=== PATIENT | female | born 1980 | race Hispanic/Latino ===

== ENCOUNTER → 2017-09-06 09:24 | Outpatient (CLI) | payer MEDICAID, SELFPAY ==
[2017-09-06 11:02] LABS: Free T3 2.9 pg/mL (2.18-3.98); T4 Free Direct 0.91 ng/dL (0.76-1.46); Thyroid Stim Hormone (TSH) 9.83 uIU/mL (0.358-3.74)
== END ==
PROVIDERS: Visit Provider Nurse Practitioner
DX: E03.9 Hypothyroidism, unspecified (principal)
CPT/HCPCS: 36415; 84439; 84443; 84481

== ENCOUNTER → 2018-01-30 13:27 | Outpatient (CLI) | payer MEDICAID, SELFPAY ==
[2018-01-30 15:43] LABS: Hemoglobin A1c 10.8 % (4.2-6.3)
[2018-01-30 16:51] LABS: Free T3 1.4 pg/mL (2.18-3.98); T4 Free Direct 0.57 ng/dL (0.76-1.46)
== END ==
PROVIDERS: Visit Provider Nurse Practitioner
DX: E03.9 Hypothyroidism, unspecified (principal); R73.09 Other abnormal glucose
CPT/HCPCS: 36415; 83036; 84439; 84443; 84481

== ENCOUNTER 2018-02-14 10:37 | Emergency (ER) | payer MEDICAID, SELFPAY ==
[2018-02-14 10:38] VITALS: BP 131/82; PULSE 91; RESP 16; TEMP 37.1; O2SAT 99; BMI 36.1
--- NOTE | 2018-02-14 11:00 | US_ITS ---
STUDY: ABDOMINAL ULTRASOUND - RIGHT UPPER QUADRANT REASON FOR VISIT: Female, 37 years old. Right upper quadrant pain. TECHNIQUE: Ultrasound evaluation of the right upper quadrant was performed with real-time and static warner-scale imaging. TECHNICAL QUALITY: Adequate. COMPARISON: None. FINDINGS: Liver: The liver is slightly enlarged and measures 18.9 cm. There is increased echogenicity consistent with fatty infiltration. The bile ducts are within normal limits. There is hepatic color flow. The direction of portal flow is hepatopetal. There is no demonstrated mass lesion. Gallbladder: Normal distended gallbladder. The gallbladder wall measures 2.5 mm. There is a negative sonographic Page's sign. There is no pericholecystic fluid. There are no gallstones. Common Bile Duct (C.B.D.): The common bile duct measures 3.4 mm. Pancreas: Normal size of the head, body and tail of the pancreas. There is normal echogenicity of the pancreas. There is no demonstrated pancreatic mass or cyst. Right Kidney: Normal size of the right kidney. The right kidney measures 10.4 cm x 4.5 cm x 4.3 cm. Normal renal cortex. The right cortex measures 1.1 cm. There is no demonstrated renal mass or cyst. There is no right hydronephrosis. US/Gallbladder IMPRESSION: Mild hepatomegaly and fatty infiltration of the liver. Electronically Signed: Jim Askew MD at 12:20 EDT Tel [phone], Service support ,
[2018-02-14] MEDS: Ondansetron 4 MG/2 ML Vial IV (11:13)
[2018-02-14] MEDS: Ketorolac 30 MG/ML Syringe IV (11:13)
[2018-02-14 11:23] LABS: Absolute Lymphocyte Count 2.52 X10^3/ul (0.83-4.51); Absolute Neutrophil Count 8.4 X10^3/uL (2.0-7.7); Basophil# 0.05 X10^3/uL; Basophil% 0.4 % (0-1); Eosinophil# 0.16 X10^3/uL; Eosinophils% 1.4 % (0-5); Hematocrit 45.2 % (37-47); Hemoglobin 15.4 g/dl (12.0-15.0); Lymphocyte # 2.52 X10^3/ul (4.0); Lymphocyte % 21.8 % (19-41); Mean Corp Hgb Conc 34.1 g/gl (32-36); Mean Platelet Vol. 10.7 fl (6.2-12.0); Monocyte% 3.5 % (0-10); Neutrophil % 72.7 % (47-70); POSITIVE COUNT NO; POSITIVE DIFFERENTIAL NO; POSITIVE MORPHOLOGY NO; Platelet Count 205 K/mm3 (150-450); RBC Distribution Width CV 13.5 % (11.6-14.6); RBC Distribution Width SD 46.6 fl (35.1-43.9); Red Blood Count 4.81 M/mm3 (4.2-5.4); White Blood Count 11.6 K/mm3 (4.4-11.0)
[2018-02-14 11:39] LABS: AST(SGOT) 273 U/L (15-37); Alanine Aminotransfer ALT/SGPT 209 U/L (13-56); Albumin, Serum 4.4 g/dL (3.2-5.0); Alkaline Phosphatase 362 U/L (45-117); Anion Gap 10 (5-15); BUN 12 mg/dL (7-18); BUN/Creat Ratio 13.9 RATIO (10-20); Bilirubin, Direct 0.22 mg/dL (0.00-0.30); Calcium,Total 9.5 mg/dL (8.5-10.1); Chloride 96 mmol/L (98-107); Creatinine, Serum 0.86 mg/dL (0.55-1.02); EST Glomerular Filtration Rate 79 mL/min (>60); Est Glom Filt Rate - Afr Amer 95 mL/min (>60); Estimated Creatinine Clearance 68.24 ml/min; Globulin 5.2 g/dL (2.2-4.2); Glucose 308 mg/dL (74-106); Lipase 204 U/L (73-393); Potassium 3.9 mmol/L (3.5-5.1); Protein, Total 9.6 g/dL (6.4-8.2); Sodium Level 135 mmol/L (136-145)
[2018-02-14 13:55] VITALS: BP 120/75; PULSE 77; RESP 14; O2SAT 98
--- NOTE | 2018-02-14 15:11 | HP.PCM_ITS ---
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 Smoking Status: Never smoker - Physical Exam Vital Signs Temp Pulse Resp BP Pulse Ox 98.7 F 77 14 120/75 98 02/14/18 10:38 02/14/18 13:55 02/14/18 13:55 02/14/18 13:55 02/14/18 13:55 Oxygen Delivery Method Room Air Weight: 86.818 kg Body Mass Index (BMI) 36.1 Laboratory Tests Past 24 Hrs 02/14/18 02/14/18 11:15 11:15 WBC 11.6 H RBC 4.81 Hgb 15.4 H Hct 45.2 MCV 94.0 MCH 32.0 MCHC 34.1 RDW 13.5 RDW Differential 46.6 H Plt Count 205 MPV 10.7 Immature Gran % (Auto) 0.200 Neut % (Auto) 72.7 H Lymph % (Auto) 21.8 [place] % (Auto) 3.5 Eos % (Auto) 1.4 Baso % (Auto) 0.4 Absolute Neuts (auto) 8.4 H Absolute Lymphs (auto) 2.52 Total Counted Not Reportable Sodium 135 L Potassium 3.9 Chloride 96 L Carbon Dioxide 29.0 Anion Gap 10 BUN 12 Creatinine 0.86 Estim Creat Clear Calc 68.24 Est GFR (MDRD) Af Amer 95 Est GFR (MDRD) Non-Af 79 BUN/Creatinine Ratio 13.9 Glucose 308 H Calcium 9.5 Total Bilirubin 0.70 Direct Bilirubin 0.22 AST 273 H ALT 209 H Alkaline Phosphatase 362 H Total Protein 9.6 H Albumin 4.4 Globulin 5.2 H Lipase 204 Assessment/Plan All Active Problems (Last Reviewed 10/09/17 @ 10:58 by Mahnaz Raphael) Hypothyroidism (acquired) (Acute) Ureteral calculus, right (Acute)
[2018-02-14 15:25] VITALS: BMI 36.2
[2018-02-14 15:30] VITALS: BP 124/84; PULSE 85; RESP 16; O2SAT 96
--- NOTE | 2018-02-14 15:36 | ED.VISSUMM ---
- ER Visit Summary Date of Service: 02/14/18 Chief Complaint: Right upper quadrant abdominal pain History of Present Illness: The patient is a 37 F past medical history kidney stone and hyperthyroidism. Only prior abdominal surgeries for . Patient states the last week she has had right upper quadrant abdominal pain worse with spicy foods. Associated nausea vomiting. Denies diarrhea. Denies melena. Denies dysuria. Denies fever. No history of gallstones. Last menstrual period January 27. Denies any trauma. 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 Physical Examination: Young female no acute distress. Vital signs are stable afebrile. H EENT exam unremarkable. Neck nontender. Lungs clear to auscultation bilaterally. Heart regular rate and rhythm no murmur. Abdomen is soft soft. Nondistended normal bowel sounds. Mild right upper quadrant tenderness. No specific Page sign. Right lower quadrant and left-sided abdomen are unremarkable. Nondistended. No organomegaly or masses. She is moving all 4 extremities are neurovascular intact. Back exam nontender. I do not see any signs of jaundice or scleral icterus. Neurologically she is awake alert without focal deficits. Test Results: White count slightly elevated 11.6. H&H 15 and 45 no bands. Electrolytes are unremarkable with a BUN 12 and creatinine 0.8. Her liver enzymes are elevated the alk phos is 362, ALT 209, AST 273. Lipase is normal. The direct and indirect bilirubin normal. Right upper quadrant ultrasound showed mild hepatomegaly and fatty liver. There is no gallstones, no acute cholecystitis nor any signs of biliary obstruction. This may be secondary to inflammation or infection I did send I hepatitis panel. Emergency Department Course and Treatment: Repeat exam patient is doing well at 1535. Abdomen is benign. I spoke to her hospitalist they felt comfortable as do I with her being worked up as an outpatient. She will be referred to Dr. Pena. Treatment Plan: Outpatient workup for abdominal pain and elevated liver enzymes Disposition: Discharge Impression: Acute right upper quadrant abdominal pain with elevated liver enzymes Rule out hepatitis versus other etiologies This note was generated with Presentain dictation software. It may contain incorrect words, spelling, and punctuation that were not noted in review of the chart prior to signing ED Disposition - Plan for ED Patient: Chief Complaint: Abd Pain Referrals: Care Physician,No Primary [Primary Care Provider] -
--- NOTE | 2018-02-14 15:40 | ED.DEP ---
ED Disposition - Plan for ED Patient: Disposition: Home or Assisted Living Chief Complaint: Abd Pain Instructions: ED Abdominal Pain Unkn Cause Referrals: Jake Pena MD [NON-STAFF] - As soon as possible Additional Instructions: Call and follow-up with the physician as soon as possible. You are going to need further evaluation for abnormal liver enzymes and right upper quadrant abdominal pain. This may or may not be secondary to hepatitis versus other causes. I did send additional lab work that is not back yet today for this. Return if feeling worse, intractable vomiting or fever.
--- NOTE | 2018-02-14 15:41 | ED.DCSUM_ITS ---
- ER Visit Summary Date of Service: 02/14/18 Chief Complaint: Right upper quadrant abdominal pain History of Present Illness: The patient is a 37 F past medical history kidney stone and hyperthyroidism. Only prior abdominal surgeries for . Patient states the last week she has had right upper quadrant abdominal pain worse with spicy foods. Associated nausea vomiting. Denies diarrhea. Denies melena. Denies dysuria. Denies fever. No history of gallstones. Last menstrual period January 27. Denies any trauma. 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 Physical Examination: Young female no acute distress. Vital signs are stable afebrile. H EENT exam unremarkable. Neck nontender. Lungs clear to auscultation bilaterally. Heart regular rate and rhythm no murmur. Abdomen is soft soft. Nondistended normal bowel sounds. Mild right upper quadrant tenderness. No specific Page sign. Right lower quadrant and left-sided abdomen are unremarkable. Nondistended. No organomegaly or masses. She is moving all 4 extremities are neurovascular intact. Back exam nontender. I do not see any signs of jaundice or scleral icterus. Neurologically she is awake alert without focal deficits. Test Results: White count slightly elevated 11.6. H&H 15 and 45 no bands. Electrolytes are unremarkable with a BUN 12 and creatinine 0.8. Her liver enzymes are elevated the alk phos is 362, ALT 209, AST 273. Lipase is normal. The direct and indirect bilirubin normal. Right upper quadrant ultrasound showed mild hepatomegaly and fatty liver. There is no gallstones, no acute cholecystitis nor any signs of biliary obstruction. This may be secondary to inflammation or infection I did send I hepatitis panel. Emergency Department Course and Treatment: Repeat exam patient is doing well at 1535. Abdomen is benign. I spoke to her hospitalist they felt comfortable as do I with her being worked up as an outpatient. She will be referred to Dr. Pena. Treatment Plan: Outpatient workup for abdominal pain and elevated liver enzymes Disposition: Discharge Impression: Acute right upper quadrant abdominal pain with elevated liver enzymes Rule out hepatitis versus other etiologies This note was generated with [employer] dictation software. It may contain incorrect words, spelling, and punctuation that were not noted in review of the chart prior to signing ED Disposition - Plan for ED Patient: Chief Complaint: Abd Pain Referrals: Care Physician,No Primary [Primary Care Provider] -
[2018-02-14 16:03] VITALS: RESP 16
[2018-02-16 12:13] LABS: HEPATITIS B SURFACE AG Negative (Negative); Hepatitis A IgM Antibody Negative (Negative); Hepatitis B Core AB IgM Negative (Negative)
[2018-02-16 15:11] LABS: Hep C Antibodies <0.1 s/co ratio (0.0-0.9)
== END 2018-02-14 16:05 | disposition home or self-care (01) ==
PROVIDERS: Emergency Provider Emergency Medicine
DX: R10.11 Right upper quadrant pain (principal); R74.8 Abnormal levels of other serum enzymes; K76.0 Fatty (change of) liver, not elsewhere classified; Z87.442 Personal history of urinary calculi
CPT/HCPCS: 76705; 80048; 80074; 80076; 83690; 85025; 96374; 96375; 99283; A4216; J2405

== ENCOUNTER → 2018-04-10 10:38 | Outpatient (CLI) | payer SELFPAY ==
[2018-04-10 12:59] LABS: Free T3 2.9 pg/mL (2.18-3.98); T4 Free Direct 1.17 ng/dL (0.76-1.46); Thyroid Stim Hormone (TSH) 6.01 uIU/mL (0.358-3.74)
== END ==
PROVIDERS: Visit Provider Nurse Practitioner
DX: E03.9 Hypothyroidism, unspecified (principal)
CPT/HCPCS: 36415; 84439; 84443; 84481

== ENCOUNTER 2018-12-31 17:20 | Inpatient (IN) | payer MEDICAID, SELFPAY ==
[2018-12-31] VITALS (11 sets, daily range): BP systolic 112–132; BP diastolic 61–85; PULSE 100–116; RESP 16–20; TEMP 36–36.3; O2SAT 95–100; BMI 38.0
[2018-12-31] MEDS: Lactated Ringers 1,000 ML 999 ML IV ×2 (13:00→17:45)
[2018-12-31] MEDS: Betamethasone/Betamethasone 30 MG/5 ML Vial 12 MG IM (13:55)
[2018-12-31] MEDS: 0.9% Saline Lock 10 ML Syringe IV (14:00)
--- NOTE | 2018-12-31 14:30 | US_ITS ---
STUDY: OBSTETRICAL ULTRASOUND - BIOPHYSICAL PROFILE REASON FOR EXAM: Female, 38 years old. well-being. Diabetes. LMP: 04/18/2019 PRIOR ULTRASOUND: None. TECHNIQUE: Transabdominal TECHNICAL QUALITY: Adequate. FINDINGS: There is a single intrauterine fetus. The fetus is in a cephalic presentation. There is demonstrated cardiac activity with a heart rate of 147 bpm. There is decreased amniotic fluid consistent with oligohydramnios. The largest amniotic fluid pocket measures 2.4 cm. The amniotic fluid index (MANISH) is 6.6 cm. The placenta is anterior in location and is not low lying. There are Grade 3 placental changes. Age by LMP: 36 weeks, 5 days. BOBBY by LMP: 01/23/19. Gender: Male BIOPHYSICAL PROFILE: Breathing Movements (FBM): 0 Gross Body Movements (GBM): 0 Tone (FT): 0 Amniotic Fluid Volume (AFV): 2 TOTAL SCORE: 2 / 8 US/Biophysical Prof W/O Non Stres IMPRESSION: Abnormal biophysical profile of 2/8. Electronically Signed: Tavo Day MD at 17:18 EDT , Service support ,
[2018-12-31 15:19] LABS: Hemoglobin 12.4 g/dl (12.0-15.0); Mean Corp Hgb Conc 33.5 g/gl (32-36); Mean Corpuscular Volume 80.6 fL (81-99); Mean Platelet Vol. 12.1 fl (6.2-12.0); Platelet Count 252 K/mm3 (150-450); RBC Distribution Width SD 36.7 fl (35.1-43.9); Red Blood Count 4.59 M/mm3 (4.2-5.4); Scan Indicated on CBC? Y/N NO; White Blood Count 9.6 K/mm3 (4.4-11.0)
[2018-12-31 15:31] LABS: Fibrinogen 670 mg/dl (203-444); Partial Thromboplast Time 28.7 Seconds (24.1-36.2); Prothrombin Time (Protime)PT. 12.9 SECONDS (11.7-14.9)
[2018-12-31 15:33] LABS: Protein, Urine (Random) 17.8 mg/dL (<11.9); Protein:Creat Ratio 286 mg/g CRE (0-200)
[2018-12-31 16:05] LABS: AST(SGOT) 27 U/L (15-37); Alanine Aminotransfer ALT/SGPT 16 U/L (13-56); Creatinine, Serum 0.57 mg/dL (0.55-1.02); EST Glomerular Filtration Rate 126 mL/min (>60); Est Glom Filt Rate - Afr Amer 152 mL/min (>60); Estimated Creatinine Clearance 101.97 ml/min; Uric Acid 5.3 mg/dL (2.6-6.0)
[2018-12-31 17:06] LABS: Bedside Glucose 157 mg/dL (70-110)
--- NOTE | 2018-12-31 17:28 | PCM.HP.OB ---
History Date of Admission: 02/28/17 Final BOBBY: 02/01/19 Final BOBBY Source: US <20 weeks Gestational age: 35 Weeks and 3 Days History of this : This is a 38 year-old, -2-0-2 at 35-3/7 weeks gestation with EDC of 02/01/2019 by first trimester ultrasound alone presents from the office for decelerations and nonreactive nonstress test. In addition she was having some contractions and was admitted for threatened labor. Labor and delivery she was found to have occasional variable and late decelerations. One variable deceleration was 2 minutes long. Patient had good movement. She continues to have regular contractions. She denies any gross vaginal bleeding or leaking of fluid. Medical History: Medical History (Last Reviewed 06/05/18 @ 11:22 by Mahnaz Raphael) Carpal tunnel syndrome G56.00 Hypothyroidism E03.9 Surgical History: Surgical History (Last Reviewed 06/05/18 @ 11:22 by Mahnaz Raphael) H/O: Z98.891 Allergies amoxicillin Allergy (Verified 12/31/18 13:00) Rash Home Medications: Home Medications vitamins no.106-iron 27.5 mg-folate no.6 1 mg-dha capsule 1 cap PO DAILY 06/05/18 levothyroxine 50 mcg tablet See Rx Instructions PO QDAY #74 tab 06/08/18 Smoking Status: Never smoker Alcohol: None Number of Fetus(es): 1 Heart Tracing: Normal baseline, minimal to moderate variability at times, some accelerations, some variable late decelerations. TOCO Analysis: Irregular contractions History Past Pregnancies: Past Pregnancies Delivery Date Name GA/Weeks Outcome Route Weight Infant Gender Labor Length Anesthesia Delivery Location Provider FOB Expected Delivery Method: Spontaneous Vaginal Review of Systems Constitutional: Denies: Anorexia, Chills, Malaise, Fatigue Eyes: Denies: Blurred vision Cardiovascular: Reports: Edema. 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 High risk multigravida, multiparity and desires sterilization, type 2 diabetes in on insulin, maternal obesity with BMI of 38 history of 2 previous deliveries, hypothyroidism BPP was done and is 2 out of 8. Nonstress test was reactive. However, fetus has had several decelerations. Addition, amniotic fluid volume was only 6 cm today. I discussed with the patient and her that I would recommend proceeding with delivery as soon as reasonably possible. She did receive a dose of betamethasone earlier today. Risks, benefits, and alternatives to repeat section were discussed with patient and her , questions were answered to their satisfaction they desire to proceed. In addition, she desires permanent sterilization. She understands is permanent, irreversible risk of failure regret. Abruption labs were negative. Glucose was elevated, but as she is n.p.o. status for the will not treat at this time. Will adjust medications and monitor BS.
[2018-12-31] MEDS: Sodium Citrate/Citric Acid 30 ML UDC PO (17:55)
--- NOTE | 2018-12-31 18:00 | PLAC_PTH ---
PATIENT: MACK REYES LOC: [facility] U#:[id number] AGE/SX: 38/F ROOM: WP007 RE12/31/[address]: Dr. Yocasta Denney MD : 1980 BED: 1 DIS: 01/03/2019 SPEC #: [id number] RECD: 01/01/19 01:32 STATUS: MIKAELA RETank #: [id number] JR: 12/31/18 18:[address]: Yocasta Denney DEPT: SURGICAL PATHOLOGY RECD BY: Gatito Rodriguez ENTERED: 01/01/19 08:50 SP TYPE: PLACENTA OTHR DR: No Primary Care Phys Tissues: A - Placenta, NOS B - Fallopian tube Procedures: Surgery Specimen Level II Surgery Specimen Level V HEADER OPERATION: Repeat section; tubal ligation PRE-OP DIAGNOSIS: decelerations TISSUE SUBMITTED: A - Placenta, B - Fallopian tubes MICROSCOPIC DIAGNOSIS A. Ruiz placenta (512 gm): Umbilical cord - trivascular with no inflammation. Placental membranes - no evidence of inflammation. Placental disc - Tim-Ross change, intravillous congestion and intervillous congestion. B. Right and left fallopian tubes, bilateral partial salpingectomies: Two complete segments of fallopian tubes with no pathologic change. AM:racheal 01/03/19 MICROSCOPIC DESCRIPTION Slides are reviewed. GROSS DESCRIPTION A - SPECIMEN: PLACENTA / CLINICAL INFORMATION: A. Weight: 3.13 kg B. Gestational Age: 35 weeks C. Sex: Male PLACENTAL WEIGHT (POST FIXATION): 512 gm PLACENTAL DIMENSIONS: 17.5 x 15 x 3 cm PLACENTAL SHAPE: Usual ovoid PLACENTAL WEIGHT FOR GESTATIONAL AGE: Over 99th percentile MEMBRANES - Present A. Insertion: Marginal B. Site of rupture from edge: At edge of placental disc C. Color of membrane: Rogers-warner D. Abnormalities: None UMBILICAL CORD - Present A. Color: Rogers-warner B. Insertion: Eccentric C. Length: 33 cm D. Diameter: 1.5 cm E. Number of vessels: Three F. Abnormalities: None PLACENTAL DISC - Present A. Color of surface: Rogers-warner B. surface abnormalities: None C. Maternal cotyledons: Intact with minimal tears D. Attached retro placental clot: No clot E. Cut surface: Dark red and spongy F. Lesions: None G. Separate clot: Absent SECTIONS SUBMITTED: 1. Umbilical cord ( end notched) 2. Membrane roll 3. Placental disc, and maternal surfaces 4. Placental disc, and maternal surfaces 5. Placental disc, and maternal surfaces B - Received is one container labeled with the patient's name and designated fallopian tubes. The specimen consists of two fallopian tubes with an average length of 2 cm and has an average diameter of 0.6 cm. Both fallopian tubes have normal fimbriated ends. No mass lesions are identified. Anthropologist sections are submitted in two cassettes as follows: 1 - one fallopian tube, 2 - the other fallopian tube. / AM:racheal 01/02/19 TC:5 CPT: 53241, 92933 x2
[2018-12-31] MEDS: Oxytocin 30 units/NS 500 ml 30 UNITS/500 ML IV.SOLN 167 UNITS IV (18:25)
[2018-12-31] MEDS: Ketorolac 30 MG/ML Syringe IV (18:44)
--- NOTE | 2018-12-31 19:29 | PCM.OPRPT ---
Delivery Classification: ZUNILDA Final BOBBY: 02/01/19 Final BOBBY Source: US <20 weeks Gestational age: 35 Weeks and 3 Days Indications for : - - Previous , nonreassuring testing, sterilization request, gestational diabetes on insulin, maternal obesity with BMI of 38 Amniotic Membrane Rupture Type: Artificial Amniotic Fluid Description: Clear Placenta Disposition: Sent to Pathology Specimen(s) sent to pathology: Bilateral fallopian tubes and placenta Drain: Martinez to straight drain Fluids Replaced: 1200 cc Cord Entanglement: None Cord Vessel Description: 3 Vessels Esitmated Blood Loss (ml): 1000 Infant Gender: Female Delayed cord clamping: Yes Pre-op Antibiotic Given: Ancef 2 grams IV x1 - Admit VTE Documentation VTE Present on Admission: No VTE Mechan Device Prophylaxis: SCD's VTE Pharm Prophylaxis ordered?: Yes
--- NOTE | 2018-12-31 20:00 | NURSING ---
Previous RN to complete med rec. Pt unsure of medications and doses per RN report.
[2018-12-31] MEDS: Cefazolin 2 GM in 0.9% Normal Saline 100 ML IV (20:12)
[2018-12-31 21:06] LABS: Bedside Glucose 231 mg/dL (70-110)
[2018-12-31] MEDS: Insulin NPH Human 100 UNITS/ML PEN 20 UNITS SC (21:36)
[2018-12-31] MEDS: Senna/Docusate Sodium 1 Tablet PO (21:36)
[2018-12-31] MEDS: Lactated Ringers 1,000 ML 100 ML IV (22:14)
[2019-01-01] VITALS (14 sets, daily range): BP systolic 92–130; BP diastolic 49–70; PULSE 76–100; RESP 16–18; TEMP 36.1–37.2; O2SAT 95–98
[2019-01-01] LABS: Pathology Specimen OB SEE PATHOLOGY REPORT
[2019-01-01] MEDS: Ketorolac 30 MG/ML Syringe IV ×5 (00:48→23:56)
[2019-01-01 03:41] LABS: Bedside Glucose 184 mg/dL (70-110)
[2019-01-01 05:19] LABS: Hematocrit 30.1 % (37-47); Hemoglobin 10.1 g/dl (12.0-15.0); Mean Corp Hgb Conc 33.6 g/gl (32-36); Mean Corpuscular Hgb 27.4 pg (27.0-32.0); Mean Corpuscular Volume 81.6 fL (81-99); Mean Platelet Vol. 11.5 fl (6.2-12.0); Platelet Count 244 K/mm3 (150-450); RBC Distribution Width CV 13.1 % (11.6-14.6); RBC Distribution Width SD 39.3 fl (35.1-43.9); Red Blood Count 3.69 M/mm3 (4.2-5.4); White Blood Count 13.6 K/mm3 (4.4-11.0)
[2019-01-01 05:21] LABS: Scan Indicated on CBC? Y/N NO
[2019-01-01] MEDS: Levothyroxine 150 MCG Tablet PO (06:40)
[2019-01-01] MEDS: Lactated Ringers 1,000 ML 100 ML IV (08:01)
[2019-01-01] MEDS: Senna/Docusate Sodium 1 Tablet PO ×2 (08:02→22:10)
[2019-01-01] MEDS: Insulin Lispro 100 UNIT/ML INSULN.PEN 8 UNIT SC ×2 (08:03→17:25)
[2019-01-01] MEDS: Insulin Lispro 100 UNIT/ML INSULN.PEN SC ×2 (08:04→12:02)
[2019-01-01] MEDS: Insulin NPH Human 100 UNITS/ML PEN 8 UNITS SC (08:05)
[2019-01-01 08:15] LABS: Bedside Glucose 154 mg/dL (70-110)
--- NOTE | 2019-01-01 08:23 | PCM.PN.OB ---
Subjective: Pain well controlled, average lochia. No nausea or vomiting this morning. Very tired, she did not sleep much. Complaining of some pruritus but has not Benadryl yet - Physical Exam General: Alert, Cooperative, No apparent distress Abdomen: Soft, Non-Distended, Tender - Appropriately Extremities: Edema - 1+ Skin: Incision - Bandage with small amount of sanguinous drainage, otherwise dry and intact Vital Signs Temp Pulse Resp BP Pulse Ox 97.7 F L 89 16 92/49 L 97 01/01/19 08:06 01/01/19 08:06 01/01/19 08:06 01/01/19 08:06 01/01/19 08:06 Oxygen Delivery Method Room Air Weight: 91.4 kg Body Mass Index (BMI) 38.0 Intake and Output for Last 24 Hours 12/30/18 12/31/18 01/01/19 23:59 23:59 23:59 Intake Total 2450 / 2450 2836 / 2836 Output Total 300 / 300 600 / 600 Balance 2150 / 2150 2236 / 2236 Laboratory Tests Past 24 Hrs 12/31/18 12/31/18 12/31/18 14:40 14:40 14:40 WBC 9.6 RBC 4.59 Hgb 12.4 Hct 37.0 MCV 80.6 L MCH 27.0 MCHC 33.5 RDW 13.0 RDW Differential 36.7 Plt Count 252 MPV 12.1 H PT INR APTT Fibrinogen Creatinine 0.57 Estim Creat Clear Calc 101.97 Est GFR (MDRD) Af Amer 152 Est GFR (MDRD) Non-Af 126 Uric Acid 5.3 AST 27 ALT 16 U Random Total Protein 17.8 H Urine Creatinine 62.30 Protein/Creatinin Ratio 286 H Blood Type Antibody Screen 12/31/18 12/31/18 12/31/18 14:45 14:55 14:55 WBC RBC Hgb Hct MCV MCH MCHC RDW RDW Differential Plt Count MPV PT 12.9 INR 1.0 APTT 28.7 Fibrinogen 670 H Creatinine Estim Creat Clear Calc Est GFR (MDRD) Af Amer Est GFR (MDRD) Non-Af Uric Acid AST ALT U Random Total Protein Urine Creatinine Protein/Creatinin Ratio Blood Type O POSITIVE Antibody Screen NEGATIVE 01/01/19 05:10 WBC 13.6 H RBC 3.69 L Hgb 10.1 L Hct 30.1 L MCV 81.6 MCH 27.4 MCHC 33.6 RDW 13.1 RDW Differential 39.3 Plt Count 244 MPV 11.5 PT INR APTT Fibrinogen Creatinine Estim Creat Clear Calc Est GFR (MDRD) Af Amer Est GFR (MDRD) Non-Af Uric Acid AST ALT U Random Total Protein Urine Creatinine Protein/Creatinin Ratio Blood Type Antibody Screen POC Glucose 01/01/19 01/01/19 12/31/18 07:59 03:22 21:00 POC Glucose 154 H 184 H 231 H 12/31/18 17:01 POC Glucose 157 H Medical Necessity - Tobacco Use Smoking Status: Never smoker Assessment/Plan All Active Problems (Last Reviewed 06/05/18 @ 11:22 by Mahnaz Raphael) Ureteral calculus, right (Acute) Postoperative day #1 status post repeat and bilateral partial salpingectomy. Hemoglobin drop is appropriate for blood loss during surgery. Vital signs are stable, urine output is adequate. Ambulate today, may shower. is bottlefeeding and doing well. Type 2 diabetes, blood sugars may trend somewhat high for the next day or 2 because she had betamethasone yesterday, but overall adequate control at this time. Will need follow-up with her primary care physician long-term for maintenance of this.
[2019-01-01] MEDS: DiphenhydrAMINE 25 MG Capsule PO (08:45)
[2019-01-01 12:20] LABS: Bedside Glucose 205 mg/dL (70-110)
[2019-01-01] MEDS: Enoxaparin 40 MG/0.4 ML Syringe SC (17:28)
[2019-01-01] MEDS: 0.9% Saline Lock 10 ML Syringe IV ×2 (18:01→23:56)
[2019-01-01 18:25] LABS: Bedside Glucose 139 mg/dL (70-110)
[2019-01-01] MEDS: Acetaminophen 500 MG Tablet 1000 MG PO (20:04)
[2019-01-01] MEDS: Insulin NPH Human 100 UNITS/ML PEN 20 UNITS SC (22:09)
[2019-01-01 22:25] LABS: Bedside Glucose 204 mg/dL (70-110)
[2019-01-02 01:38] VITALS: BP 98/55; PULSE 76; RESP 18; TEMP 36.4; O2SAT 98
[2019-01-02] MEDS: Naproxen 250 MG Tablet PO ×2 (06:12→13:57)
[2019-01-02] MEDS: Levothyroxine 150 MCG Tablet PO (06:12)
[2019-01-02] MEDS: Enoxaparin 40 MG/0.4 ML Syringe SC (06:14)
[2019-01-02 06:26] LABS: Bedside Glucose 97 mg/dL (70-110)
--- NOTE | 2019-01-02 07:38 | PCM.PN.OB ---
Subjective: pain well controlled, average lochia. +BM. Ambulating. Shu. regular diet - Physical Exam General: Alert, Cooperative, No apparent distress Abdomen: Soft, Non-Distended, Tender - appropriately Extremities: Edema - 1+ Skin: Incision - clean, dry and intact Vital Signs Temp Pulse Resp BP Pulse Ox 97.6 F L 76 18 98/55 L 98 01/02/19 01:38 01/02/19 01:38 01/02/19 01:38 01/02/19 01:38 01/02/19 01:38 Oxygen Delivery Method Room Air Weight: 91.4 kg Body Mass Index (BMI) 38.0 Intake and Output for Last 24 Hours 12/31/18 01/01/19 01/02/19 23:59 23:59 23:59 Intake Total 2450 / 2450 3595 / 3595 Output Total 300 / 300 2800 / 2800 250 / 250 Balance 2150 / 2150 795 / 795 -250 / -250 POC Glucose 01/02/19 01/01/19 01/01/19 06:11 22:07 17:19 POC Glucose 97 204 H 139 H 01/01/19 01/01/19 11:55 07:59 POC Glucose 205 H 154 H Medical Necessity - Tobacco Use Smoking Status: Never smoker Assessment/Plan All Active Problems (Last Reviewed 06/05/18 @ 11:22 by Mahnaz Raphael) Ureteral calculus, right (Acute) PPD#2 routine care doing well likely d/c home tomorrow
[2019-01-02 08:00] VITALS: BP 92/58; PULSE 83; RESP 18; TEMP 36.2
[2019-01-02] MEDS: Insulin Lispro 100 UNIT/ML INSULN.PEN 8 UNIT SC ×2 (08:51→18:13)
[2019-01-02] MEDS: Insulin NPH Human 100 UNITS/ML PEN 8 UNITS SC (08:54)
[2019-01-02] MEDS: Senna/Docusate Sodium 1 Tablet PO ×2 (09:05→22:51)
[2019-01-02] MEDS: oxyCODONE 5 MG Tablet PO ×4 (09:05→23:12)
[2019-01-02 13:15] VITALS: BP 126/64; PULSE 90; RESP 18; TEMP 36.3
[2019-01-02 13:21] LABS: Bedside Glucose 110 mg/dL (70-110)
[2019-01-02 17:40] LABS: Bedside Glucose 156 mg/dL (70-110)
[2019-01-02] MEDS: Insulin Lispro 100 UNIT/ML INSULN.PEN SC (18:13)
[2019-01-02 20:04] VITALS: BP 115/78; PULSE 102; RESP 18; TEMP 36.8; O2SAT 95
--- NOTE | 2019-01-02 23:01 | NURSING ---
Pt. BGT obtained at 122 mg/dL. This RN called Dr. Robles, the doctor studio receptionist, and asked if insulin should still be given. Dr. Robles told this RN to hold insulin and obtain a fasting blood sugar in the morning.
[2019-01-02 23:20] LABS: Bedside Glucose 122 mg/dL (70-110)
[2019-01-03 01:53] VITALS: BP 98/50; PULSE 85; RESP 15; TEMP 36.7; O2SAT 94
[2019-01-03] MEDS: Levothyroxine 150 MCG Tablet PO (06:18)
[2019-01-03] MEDS: Naproxen 250 MG Tablet PO (06:19)
[2019-01-03] MEDS: Enoxaparin 40 MG/0.4 ML Syringe SC (06:22)
[2019-01-03 06:30] LABS: Bedside Glucose 106 mg/dL (70-110)
[2019-01-03 08:15] VITALS: BP 123/54; PULSE 96; RESP 16; TEMP 36.5
--- NOTE | 2019-01-03 08:23 | PCM.PN.OB ---
Subjective: Pain well controlled, average lochia. She had a bowel movement. She is ambulating urinating without difficulty. is doing well. - Physical Exam General: Alert, Cooperative, No apparent distress Abdomen: Soft, Non-Distended, Tender - Appropriately Skin: Incision - Bandages clean dry and intact Vital Signs Temp Pulse Resp BP Pulse Ox 98.0 F 85 15 98/50 L 94 01/03/19 01:53 01/03/19 01:53 01/03/19 01:53 01/03/19 01:53 01/03/19 01:53 Oxygen Delivery Method Room Air Weight: 91.4 kg Body Mass Index (BMI) 38.0 Intake and Output for Last 24 Hours 01/01/19 01/02/19 01/03/19 23:59 23:59 23:59 Intake Total 3595 / 3595 Output Total 2800 / 2800 250 / 250 Balance 795 / 795 -250 / -250 POC Glucose 01/03/19 01/02/19 01/02/19 06:17 22:46 17:35 POC Glucose 106 122 H 156 H 01/02/19 13:12 POC Glucose 110 Medical Necessity - Tobacco Use Smoking Status: Never smoker Assessment/Plan All Active Problems (Last Reviewed 06/05/18 @ 11:22 by Mahnaz Raphael) Ureteral calculus, right (Acute) Postoperative day #3 status post repeat and bilateral partial salpingectomy Patient is doing well. For her pre-existing type 2 diabetes, she will be converted back to her Glucophage that she was on prepregnancy. She is to follow-up with her primary care physician in 4 to 6 weeks or as needed. Remove bandage on 01/05/2019 patient is comfortable with this. Patient and are ready for discharge home today.
--- NOTE | 2019-01-03 08:26 | DCINST_ITS ---
Discharge Diet: No Restrictions Discharge Activity: Return to Normal Activity, May Not Drive - for 2 weeks, May not drive while taking narcotic pain medications., May Shower, May Take a Tub Bath - in 7 days. May resume sexual activity in: 4-6 weeks Lifting Restrictions: 20 pounds Additional Activity Instructions:: Nothing in the vagina for 4-6 weeks. You may return to work/school in 6 weeks. Call your doctor if your incision/area has: Continuous Slow Oozing, Sudden Increased Bleeding, Increased Pain/ Swelling, Increased Redness, Foul Smelling Discharge Call your doctor if you observe: Fever of 101 or Higher, Using more than one pad per hour - for 2 hours Suture Line Care: Avoid Pulling/Pushing, Avoid Pinching/Bending Cleanse incision/area with: Keep Dressing Clean & Dry Additional Instructions: If you experience any of the following, contact your healthcare provider. * Bleeding that soaks a pad every hour for 2 hours * Fever 100.4 or higher * Unrelieved incision or abdominal pain * Swelling, redness, discharge or bleeding from your incision or episiotomy site * Your incision begins to separate * Problems urinating (including inability to urinate or burning while urinating). * Visual changes * Severe headache * Flu-like symptoms * Pain or redness in one of both of your breasts * Pain, warmth, tenderness or swelling in your legs, especially the calf area * Frequent nausea and vomiting * Symptoms of depression or anxiety If you experience any of the following, call 911 or go to the nearest Emergency Room. * Chest pain * Problems breathing * Seizure activity * Partial or complete paralysis of a body part, slurred speech, weakness or drooping of the face, or a sudden inability to walk or hold your balance Allergies/Adverse Reactions: Allergies amoxicillin Allergy (Verified 12/31/18 13:00) Rash Medications to take at Discharge vitamins no.106-iron 27.5 mg-folate no.6 1 mg-dha capsule 1 cap PO DAILY 06/05/18 Ibuprofen [Motrin] 800 mg PO TID PRN PRN #60 tablet 01/03/19 Levothyroxine [Synthroid] 150 mcg PO DAILY@0600 #30 tablet 01/03/19 Oxycodone HCl/Acetaminophen [Percocet 5/325] 1 - 2 tablet PO Q8 PRN 4 Days #14 tablet 01/03/19 metFORMIN HCl [Glucophage] 1,000 mg PO BIDCM #60 tablet 01/03/19 The following prescriptions were given: Ibuprofen [Motrin] 800 mg PO TID PRN PRN #60 tablet PRN Reason: Pain Levothyroxine [Synthroid] 150 mcg PO DAILY@0600 #30 tablet Oxycodone HCl/Acetaminophen [Percocet 5/325] 1 - 2 tablet PO Q8 PRN 4 Days #14 tablet PRN Reason: Pain metFORMIN HCl [Glucophage] 1,000 mg PO BIDCM #60 tablet Follow-Up: Call to make an appointment with your doctor for an incision check in 1-2 weeks. You will also need a 6 week post- follow up appointment. Test results from this visit will be discussed in further detail at your follow- up appointment, if applicable. You should follow-up with your primary care physician in 4 to 6 weeks or as needed as well regarding your diabetes and thyroid medication Please Follow Up With: Jacinda Stapleton MD - Call to make an appointment for an incision check in 1-2 [phone] When: You will need a post check in 6 weeks. Primary Care Physician: Care Physician,No Primary [Primary Care Provider] -
--- NOTE | 2019-01-03 08:26 | PCM.DC.SUM ---
Discharge Date and Diagnosis Date of Admission: 02/28/17 Date of Discharge: 01/03/19 - Secondary Discharge Diagnosis Chronic Problems (Last Reviewed 06/05/18 @ 11:22 by Mahnaz Raphael) Hypothyroidism (acquired) (Chronic) Hospital Course and Treatment Operations: - - Repeat low transverse section via Pfannenstiel skin incision with bilateral partial salpingectomy for sterilization Procedures: None Summary of Care Provided: The patient is a 38 year old female was admitted for repeat section due to nonreassuring testing and threatened labor at 35+ weeks. she had a BPP that was 4 out of 10. Also had some intermittent decelerations. The repeat section was performed without difficulty. It was noted she had dense adhesions of the uterus to the right side of her abdominal wall. Postoperatively, patient did well. By postoperative day #3 she was ambulating, urinating tolerating regular diet without difficulty. She will be transferred back to Glucophage rather than insulin. In addition, we will decrease her thyroid medication to 150 mcg daily. I recommend she follow-up in our office in 1-2 in 6 weeks or as needed. In addition she should follow-up with her primary care physician within the next month or so. - Physical Exam Vital Signs Temp Pulse Resp BP Pulse Ox 98.0 F 85 15 98/50 L 94 01/03/19 01:53 01/03/19 01:53 01/03/19 01:53 01/03/19 01:53 01/03/19 01:53 Oxygen Delivery Method Room Air Weight: 91.4 kg Body Mass Index (BMI) 38.0 Intake and Output for Last 24 Hours 01/01/19 01/02/19 01/03/19 23:59 23:59 23:59 Intake Total 3595 / 3595 Output Total 2800 / 2800 250 / 250 Balance 795 / 795 -250 / -250 POC Glucose 01/03/19 01/02/19 01/02/19 06:17 22:46 17:35 POC Glucose 106 122 H 156 H 01/02/19 13:12 POC Glucose 110 Discharge Diet: No Restrictions Discharge Activity: Return to Normal Activity, May Not Drive - for 2 weeks, May not drive while taking narcotic pain medications., May Shower, May Take a Tub Bath - in 7 days. May resume sexual activity in: 4-6 weeks Additional Activity Instructions:: Nothing in the vagina for 4-6 weeks. You may return to work/school in 6 weeks. Call your doctor if your incision/area has: Continuous Slow Oozing, Sudden Increased Bleeding, Increased Pain/ Swelling, Increased Redness, Foul Smelling Discharge Call your doctor if you observe: Fever of 101 or Higher, Using more than one pad per hour - for 2 hours Suture Line Care: Avoid Pulling/Pushing, Avoid Pinching/Bending Cleanse incision/area with: Keep Dressing Clean & Dry Home Medications: Medications to take at Discharge vitamins no.106-iron 27.5 mg-folate no.6 1 mg-dha capsule 1 cap PO DAILY 06/05/18 Ibuprofen [Motrin] 800 mg PO TID PRN PRN #60 tablet 01/03/19 Levothyroxine [Synthroid] 150 mcg PO DAILY@0600 #30 tablet 01/03/19 Oxycodone HCl/Acetaminophen [Percocet 5/325] 1 - 2 tablet PO Q8 PRN 4 Days #14 tablet 01/03/19 metFORMIN HCl [Glucophage] 1,000 mg PO BIDCM #60 tablet 01/03/19 Following Prescrptions Were Given to Patient: Ibuprofen [Motrin] 800 mg PO TID PRN PRN #60 tablet PRN Reason: Pain Levothyroxine [Synthroid] 150 mcg PO DAILY@0600 #30 tablet Oxycodone HCl/Acetaminophen [Percocet 5/325] 1 - 2 tablet PO Q8 PRN 4 Days #14 tablet PRN Reason: Pain metFORMIN HCl [Glucophage] 1,000 mg PO BIDCM #60 tablet Primary Care Physician: Care Physician,No Primary [Primary Care Provider] - Please Follow Up With: Jacinda Stapleton MD - Call to make an appointment for an incision check in 1-2 [phone] When: You will need a post check in 6 weeks. Medical Necessity - Tobacco Use Smoking Status: Never smoker Meaningful Use Info Meaningful Use Diagnoses (Choose all that apply): None applicable
[2019-01-03] MEDS: oxyCODONE 5 MG Tablet PO (08:59)
[2019-01-03] MEDS: Senna/Docusate Sodium 1 Tablet PO (08:59)
[2019-01-03] MEDS: Insulin NPH Human 100 UNITS/ML PEN 8 UNITS SC (09:02)
[2019-01-03] MEDS: Insulin Lispro 100 UNIT/ML INSULN.PEN 8 UNIT SC (09:03)
[2019-01-03 12:31] LABS: Bedside Glucose 132 mg/dL (70-110)
== END 2019-01-03 12:20 | disposition home or self-care (01) | DRG 540 ==
LOC: WP 01-01 05:05 → WPOUT 01-01 10:06
PROVIDERS: Advanced Practice Midwife; Admitting Provider Obstetrics & Gynecology; Referring Provider Obstetrics & Gynecology; Visit Provider Obstetrics & Gynecology
DX: O76 Abnormality in fetal heart rate and rhythm complicating labor and delivery (principal); O99.214 Obesity complicating childbirth; E66.9 Obesity, unspecified; O99.284 Endocrine, nutritional and metabolic diseases complicating childbirth; E03.9 Hypothyroidism, unspecified; O60.14X0 Preterm labor third trimester with preterm delivery third trimester, not applicable or unspecified; O34.211 Maternal care for low transverse scar from previous cesarean delivery; K66.0 Peritoneal adhesions (postprocedural) (postinfection); N85.6 Intrauterine synechiae; O24.424 Gestational diabetes mellitus in childbirth, insulin controlled; Z30.2 Encounter for sterilization; Z37.0 Single live birth; Z3A.35 35 weeks gestation of pregnancy
CPT/HCPCS: 36415; 59025; 59050; 76819; 82565; 82570; 82962; 84156; 84450; 84460; 84550; 85027; 85384; 85610; 85730; 86850; 86900; 88302; 88307; 96372; 99218; J7120; A4216; G0378; J0702; J2405

== ENCOUNTER → 2020-03-08 11:53 | Outpatient (CLI) | payer SELFPAY ==
[2018-12-31 12:59] VITALS: BMI 38.0
[2020-03-08 12:44] LABS: D-Dimer Quantitative (DVT/PE) 0.68 FEU/ug/m (0.27-0.49)
== END ==
PROVIDERS: PCP Family Medicine; Referring Provider Family Medicine; Visit Provider Family Medicine
DX: R07.9 Chest pain, unspecified (principal)
CPT/HCPCS: 85379

== ENCOUNTER 2020-11-29 19:36 | Inpatient (IN) | payer MEDICARE, SELFPAY ==
[2018-12-31 12:59] VITALS: BMI 38.0
[2020-11-29 19:39] VITALS: BP 121/69; PULSE 114; RESP 20; TEMP 36.1; O2SAT 95; BMI 35.9
[2020-11-29 19:40] VITALS: BP 121/69; PULSE 114; RESP 20; TEMP 36.1; O2SAT 95
--- NOTE | 2020-11-29 20:57 | EKG12_ITS ---
Test Reason : DYSRHYTHMIA Blood Pressure : / mmHG Vent. Rate : 102 BPM Atrial Rate : 102 BPM P-R Int : 132 ms QRS Dur : 086 ms QT Int : 320 ms P-R-T Axes : 046 046 024 degrees QTc Int : 417 ms Sinus tachycardia Otherwise normal ECG Confirmed by GEOVANNA KC, JULIANA ([id number]), publications editor REINA TRIVEDI ([id number]) on 12/02/2020 9:02:00 AM Referred By: LINDSEY Confirmed By:JULIANA AUSTIN MD
[2020-11-29] MEDS: 0.9% Normal Saline 1,000 ML 999 ML IV (21:19)
[2020-11-29] MEDS: Ketorolac 15 MG/ML Vial IV (21:20)
--- NOTE | 2020-11-29 21:25 | RAD_ITS ---
INDICATION: sob EXAMINATION/TECHNIQUE: X-RAY - XR Chest 1 View COMPARISON: None. FINDINGS: Subtle patchy bilateral opacities. The cardiomediastinal silhouette is unremarkable. No pleural effusion or pneumothorax. No acute osseous abnormalities. RAD/Chest 1 View (Portable) IMPRESSION: Subtle patchy bilateral opacities could represent infection in the correct clinical setting. Electronically Signed: Jonnathan Zamora MD at 22:05 EDT Tel , Service support ,
[2020-11-29 21:35] LABS: Absolute Lymphocyte Count 2.31 X10^3/uL (0.83-4.51); Absolute Neutrophil Count 3.8 X10^3/uL (2.0-7.7); Basophil# 0.01 X10^3/uL; Basophil% 0.2 % (0-1); Eosinophil# 0.02 X10^3/uL; Eosinophils% 0.3 % (0-5); Hematocrit 37.9 % (37-47); Hemoglobin 12.7 g/dL (12.0-15.0); Lymphocyte # 2.31 X10^3/ul (0.83-4.51); Lymphocyte % 36.3 % (19-41); Mean Corp Hgb Conc 33.5 g/dL (32-36); Mean Corpuscular Hgb 30.4 pg (27.0-32.0); Mean Corpuscular Volume 90.7 fL (81-99); Mean Platelet Vol. 10.6 fl (6.2-12.0); Monocyte# 0.22 X10^3/uL; Monocyte% 3.5 % (0-10); NRBC Flagged by Analyzer 0 % (0-5); Neutrophil # 3.77 X10^3/uL (2.7-7.7); Neutrophil % 59.2 % (47-70); Platelet Count 225 K/mm3 (150-450); RBC Distribution Width CV 12.6 % (11.6-14.6); RBC Distribution Width SD 42.1 fl (35.1-43.9); Red Blood Count 4.18 M/mm3 (4.2-5.4); White Blood Count 6.4 K/mm3 (4.4-11.0)
[2020-11-29 22:01] LABS: Anion Gap 8 (5-15); BUN 13 mg/dL (7-18); Calcium,Total 8.7 mg/dL (8.5-10.1); Chloride 101 mmol/L (98-107); Creatinine, Serum 0.72 mg/dL (0.55-1.02); EST Glomerular Filtration Rate 95 mL/min (>60); Est Glom Filt Rate - Afr Amer 115 mL/min (>60); Estimated Creatinine Clearance 79.16 ml/min; Glucose 243 mg/dL (74-106); Potassium 3.9 mmol/L (3.5-5.1); Sodium Level 134 mmol/L (136-145)
[2020-11-29 22:10] LABS: BNP,B-Type NATRIURETIC PEPTIDE < 2.0 pg/mL (0-100)
[2020-11-29 22:51] VITALS: O2SAT 92
[2020-11-29 23:00] VITALS: BP 128/81; PULSE 90; RESP 24; TEMP 37; O2SAT 94
--- NOTE | 2020-11-29 23:34 | ED.VIS.DYS ---
History of Present Illness Chief Complaint: Cold Sx Informant: Patient Onset: Days Associated Symptoms: Chills, Cough, Fever, Sweats Narrative: Is a 40-year-old female with history of diabetes mellitus and hypothyroid presenting with 3 days of flushing, chills and cough. Today she developed chest tightness and increased dyspnea on exertion. She states she goes up the stairs and feels short of breath. She does have some associated ear pain. She denies any nausea or vomiting. She is been having normal bowel movements. She been taking Tylenol for her symptoms with some improvements. She denies associated leg swelling, chest pain or headache. She notes she had something similar to this couple years ago but does not recall what happened. Denies any tobacco use. No other complaints at this time. Past Medical History - Allergies and Home Meds Allergies/Adverse Reactions: Allergies amoxicillin Allergy (Verified 11/29/20 19:37) Rash Past Medical History: - - Thyroid, diabetes mellitus Surgical History: no surgical history Smoking Status: Never smoker - Family History Maternal Family History: Reports: - - Denies knowledge of maternal medical history Paternal Family History: Reports: - - Denies knowledge of paternal medical history Review of Systems General: Reports: Chills, Fever, Malaise, Subjective. Denies: Sweats Eyes: Denies: Visual changes - bilaterally, Diplopia ENT: Denies: Rhinorrhea, Sore throat Cardiovascular: Denies: Chest pain, Palpitations Respiratory: Reports: Dyspnea, Cough, Dyspnea on exertion. Denies: Sputum Gastrointestinal: Denies: Abdominal pain, Nausea, Vomiting, Diarrhea, Melena, Hematochezia Genitourinary: Denies: Dysuria, Hematuria, Frequency Musculoskeletal: Denies: Back pain, Extremity Pain Skin: Denies: Rash, Wounds Neurological: Denies: Headache, Weakness, Numbness Physical Exam Vital Signs/Narrative: Vital Signs Temp Pulse Resp BP Pulse Ox 11/29/20 23:00 98.6 F 90 24 H 128/81 H 94 11/29/20 19:40 97 F L 114 H 20 H 121/69 H 95 11/29/20 19:39 97 F L 114 H 20 H 121/69 H 95 Inital Vital Signs reviewed: Yes General: Well nourished, Well developed, No Acute Distress Head: Normocephalic, Atraumatic Eyes: Perrl, EOMI ENT: Moist mucous membranes, No rhinorrhea, TM's clear. Negative for: Nasal congestion, Sinus tenderness Neck: Supple, Nontender, No JVD Cardiovascular: Regular rate, Regular rhythm, No murmurs Respiratory: No distress, Chest nontender, - - Crackles throughout, most pronounced on the right side. Negative for: Wheezing, Decreased Air Movement Abdomen: Soft, Nontender, Nondistended, Normal bowel sounds Back: Nontender, Normal Inspection Extremities: Nontender, No edema Skin: Normal color, No rash Neurological: Alert, Oriented x3, Cranial nerves II-XII grossly intact, Normal Strength, Normal Sensation Psychological: Normal affect, Normal Mood Diagnostic/Tx/Re-eval Chest X-Ray - ED: 1 View, Read by ED Physician, Read by Radiologist, - - Bilateral infiltrate - Rhythm Strip Rhythm Strip: Sinus Tach Rate: 102 Ectopy: None - EKG Initial EKG Interpretation: Sinus Tachycardia, - - Is tachycardia at a rate of 102Normal axisNormal intervalsNormal ST segments - Medical Decision Making Patient is evaluated for chills, subjective fevers as well as chest tightness and cough. Presentation is concerning for respiratory infection such as pneumonia or COVID-19 infection. Covid antigen is negative. CT does show small patchy bilateral opacities. Clinically this fits her picture. I did add on a Covid PCR. Patient be covered with antibiotics for community acquired pneumonia. As patient is tachycardic I also added on a D-dimer this is pending. Patient is ambulating and is hypoxic to 88%. She is symptomatic. Patient require admission. She started on IV Rocephin and azithromycin in the ER. She is also given oral Decadron. Patient is informed of her need for admission and is agreeable. She is stable for the general medical floor at time of disposition. ED Disposition - Plan for ED Patient: Disposition: [facility] Diagnosis: Pneumonia, Hypoxia
--- NOTE | 2020-11-29 23:38 | PCM.HP.STD ---
Problem List (1) Pneumonia Status: Acute (2) Hypothyroidism (acquired) Status: Chronic Comment: (3) Ureteral calculus, right Status: Inactive History of Present Illness Date of Admission: 11/29/20 Chief Complaint: sob The patient is a 40 year old F with a significant history of hypothyroidism and diabetes mellitus who presents to the emergency department with 2 to 3 days history of progressively worsening shortness of breath. Associated with her symptoms is dry nonproductive cough. Further, she has malaise and fatigue. She has dysgeusia. Past Medical History Past Medical History (Chronic Problems): Chronic Problems (Last Reviewed 06/05/18 @ 11:22 by Mahnaz Raphael) Hypothyroidism (acquired) (Chronic) Medical History: Medical History (Last Reviewed 11/29/20 @ 23:[address] 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 Denies: Weight Change HEENT: Denies: Head Aches, Sinus Congestion, Sinus Drainage Cardiovascular: Denies: Chest Pain, Palpitations Respiratory: Reports: Cough, Shortness of Breath. Denies: Shortness of breath at rest, Sputum production Gastrointestinal: Denies: Abdominal Pain, Nausea, Vomiting Genitourinary: Denies: Dysuria Musculoskeletal: Denies: Joint Pain, Joint Tenderness Skin: Denies: Rash, Wounds Neurological: Denies: Numbness, Tingling, Focal weakness Psychiatric: Denies: Anxiety, Depression, Homicidal Ideations, Suicidal Ideations Hematologic/ Lymphatic: Denies: Easy Bruising, Easy Bleeding VTE Information - Inpt Only VTE Present on Admission: No VTE Pharm Prophylaxis ordered?: Yes - Physical Exam Vitals/I&O's: Vital Signs Temp Pulse Resp BP Pulse Ox 98.6 F 90 24 H 128/81 H 94 11/29/20 23:00 11/29/20 23:00 11/29/20 23:00 11/29/20 23:00 11/29/20 23:00 Oxygen Delivery Method Room Air Weight: 86.183 kg Body Mass Index (BMI) 35.9 Intake and Output for Last 24 Hours 11/27/20 11/28/20 11/29/20 23:59 23:59 23:59 Intake Total 1000 / 1000 Balance 1000 / 1000 General: Alert, Oriented x3, Cooperative HEENT: Atraumatic, PERRLA, EOMI, Normocephalic Neck: Supple, No JVD, Negative Carotid Bruits Lungs: Rales, Tachypneic Cardiovascular: Normal S1, Normal S2, No murmurs, Tachycardic Abdomen: Bowel Sounds Present, Soft, Non Tender Extremities: No edema, Capillary Refill Less than 3 Seconds Skin: No rashes, No breakdown Musculoskeletal: No Tenderness to Palpation of Joints or Extremities Neurological: Cranial nerves II-XII grossly intact Psych/Mental Status: Normal Affect, Appropriate Microbiology Past 72 Hours 11/29/20 21:15 Nasal Secretion SARS-CoV-2 Antigen (Rapid) - Final Laboratory Results 11/29/20 21:20: WBC 6.4, RBC 4.18 L, Hgb 12.7, Hct 37.9, MCV 90.7, MCH 30.4, MCHC 33.5, RDW Std Deviation 42.1, RDW Coeff of Axel 12.6, Plt Count 225, MPV 10.6, Immature Gran % (Auto) 0.500, Neut % (Auto) 59.2, Lymph % (Auto) 36.3, [place] % (Auto) 3.5, Eos % (Auto) 0.3, Baso % (Auto) 0.2, Absolute Neuts (auto) 3.8, Absolute Lymphs (auto) 2.31, Nucleated RBC % 0 11/29/20 21:20: Sodium 134 L, Potassium 3.9, Chloride 101, Carbon Dioxide 25.0, Anion Gap 8, BUN 13, Creatinine 0.72, Estim Creat Clear Calc 79.16, Est GFR (MDRD) Af Amer 115, Est GFR (MDRD) Non-Af 95, BUN/Creatinine Ratio 18.0, Glucose 243 H, Calcium 8.7, Troponin I < 0.015 11/29/20 21:20: B-Natriuretic Peptide < 2.0 11/29/20 23:12: COVID-19 ([facility]) Pending Current Medications Dexamethasone (Dexamethasone 4 Mg Tablet) 6 mg PO X1 ONE Stop: 11/29/20 23:46 Ceftriaxone Sodium (Rocephin) 1 gm in 50 mls @ 100 mls/hr IV X1 ONE Stop: 11/30/20 00:02 Azithromycin 500 mg/ Dextrose 255 mls @ 250 mls/hr IV X1 ONE Stop: 11/30/20 00:34 Assessment/Plan All Active Problems (Last Reviewed 06/05/18 @ 11:22 by Mahnaz Raphael) Pneumonia (Acute) Acute hypoxemic respiratory insufficiency due to pneumonia Gram-positive; gram-negative; Covid; viral or other. Reportedly with ambulation at the ED her oxygen saturation was 82%. Oxygen supplementation as needed and titrate to maintain oxygen saturation 92% or more. Rapid Covid antigen test was negative. Patient will get Covid PCR. Ceftriaxone and azithromycin given at emergency department. Discussed emergent department doctor who will give Decadron x1. Impression of chest x-ray by radiologist: Subtle patchy bilateral opacities. Actual chest x-ray image was independently interpreted. I agree radiologist interpretation. Procalcitonin was ordered. If Covid PCR is negative and procalcitonin is negative consider comprehensive respiratory pathogen panel. No antibiotics or steroids until further work-up is back. Diabetes mellitus Patient with hyperglycemia on presentation Hold Metformin Accu-Chek QA [facility] with correction scale insulin ordered. Hypothyroidism Synthroid continued DVT prophylaxis Subcutaneous Lovenox ordered. Inpatient E&M: [id number] Init Hosp L3
[2020-11-29] MEDS: Ceftriaxone 1 GM/50 ML BAG IV (23:51)
[2020-11-29] MEDS: dexAMETHasone 4 MG Tablet 6 MG PO (23:51)
[2020-11-30] VITALS (8 sets, daily range): BP systolic 119–145; BP diastolic 65–90; PULSE 80–94; RESP 16–25; TEMP 36.2–36.6; O2SAT 87–95
[2020-11-30 00:11] LABS: D-Dimer Quantitative (DVT/PE) 0.52 FEU/ug/m (0.27-0.49)
--- NOTE | 2020-11-30 00:12 | CT_ITS ---
STUDY: CTA CHEST REASON FOR EXAM: Female, 40 years old. SOB, elevated dimer RADIATION DOSAGE (If Supplied By Facility): CTDIvol = ( 13.85 ) mGy, DLP = ( 409.54 ) mGycm TECHNIQUE: The examination was performed with the intravenous administration of IV 100mL Isovue-370. Post-processing of the angiographic images was performed, with multiplanar reformation and 3D reconstruction. Individualized dose optimization techniques were used for this CT. COMPARISON: None. FINDINGS: No filling defect in the pulmonary arteries to suggest pulmonary embolism. Intact thoracic aorta. Shotty slightly prominent mediastinal lymph nodes, nonspecific and likely reactive. No hilar or axillary adenopathy. No pleural or pericardial effusion. No pneumothorax. Extensive predominantly peripheral groundglass densities in the bilateral upper and lower lungs, compatible with Covid 19 pneumonia in the appropriate clinical setting. Sections through the upper abdomen demonstrate marked diffuse fatty change of the included parts of the liver. Osseous structures are grossly intact. CT/CTA Chest W/WO Contrast IMPRESSION: No evidence of pulmonary embolism. Findings compatible with multifocal Covid 19 pneumonia in the appropriate clinical setting. Electronically Signed: Leonid Hurst MD at 2:21 EDT Tel , Service support ,
[2020-11-30] MEDS: guaiFENesin 1,200 MG Tablet 1200 MG PO ×2 (01:00→20:39)
[2020-11-30] MEDS: Levothyroxine 150 MCG Tablet PO (06:00)
[2020-11-30 07:48] LABS: ALB/GLOB Ratio 0.6 RATIO (0.9-2.4); AST(SGOT) 51 U/L (15-37); Alanine Aminotransfer ALT/SGPT 69 U/L (13-56); Albumin, Serum 3.1 g/dL (3.2-5.0); Alkaline Phosphatase 171 U/L (45-117); Anion Gap 8 (5-15); BUN 9 mg/dL (7-18); BUN/Creat Ratio 14.1 RATIO (10-20); Calcium,Total 8.3 mg/dL (8.5-10.1); Chloride 103 mmol/L (98-107); Creatinine, Serum 0.64 mg/dL (0.55-1.02); Estimated Creatinine Clearance 89.05 ml/min; Globulin 4.8 g/dL (2.2-4.2); Glucose 302 mg/dL (74-106); Potassium 3.7 mmol/L (3.5-5.1); Protein, Total 7.9 g/dL (6.4-8.2); Sodium Level 137 mmol/L (136-145)
[2020-11-30 08:50] LABS: Bedside Glucose 299 mg/dL (70-110)
[2020-11-30] MEDS: Insulin Lispro 100 UNIT/ML INSULN.PEN SC ×4 (09:45→20:38)
[2020-11-30] MEDS: dexAMETHasone 2 MG TABLET 6 MG PO (09:45)
[2020-11-30] MEDS: Enoxaparin 30 MG/0.3 ML Syringe SC ×2 (09:47→20:38)
[2020-11-30 10:24] LABS: Hematocrit 34.9 % (37-47); Hemoglobin 12.1 g/dL (12.0-15.0); Mean Corp Hgb Conc 34.7 g/dL (32-36); Mean Corpuscular Hgb 30.6 pg (27.0-32.0); Mean Corpuscular Volume 88.4 fL (81-99); Mean Platelet Vol. 10.4 fl (6.2-12.0); Platelet Count 214 K/mm3 (150-450); RBC Distribution Width CV 12.4 % (11.6-14.6); RBC Distribution Width SD 40.5 fl (35.1-43.9); Red Blood Count 3.95 M/mm3 (4.2-5.4); White Blood Count 6.8 K/mm3 (4.4-11.0)
[2020-11-30 10:25] LABS: Absolute Neutrophil Count 5.1 X10^3/uL (2.0-7.7); Basophil% 0.1 % (0-1); Differential Indicated SCAN CRITERIA MET; Eosinophils% 0.1 % (0-5); Lymphocyte % 22.2 % (19-41); Monocyte% 1.2 % (0-10); NRBC Flagged by Analyzer 0 % (0-5); Neutrophil # 5.14 X10^3/uL (2.7-7.7); POSITIVE MORPHOLOGY YES
[2020-11-30 10:26] LABS: Differential Comment SCANNED
[2020-11-30 10:30] LABS: Procalcitonin 0.09 ng/mL (0.00-0.09)
--- NOTE | 2020-11-30 11:23 | PCM.PN.HOSP ---
Subjective Subjective: breathing well. Still on oxygen. Denies any sick contacts. Family ( and kids) are feeling well. Objective Data Objective Data Vital Signs: Vital Signs Temp Pulse Resp BP Pulse Ox 36.2 C L 94 18 145/90 H 94 11/30/20 08:53 11/30/20 08:53 11/30/20 08:53 11/30/20 08:53 11/30/20 08:53 Oxygen Flow Rate (L/min) 2 Oxygen Delivery Method Nasal Cannula Weight: 86.183 kg Body Mass Index (BMI) 35.9 Intake & Output: Intake and Output for Last 24 Hours 11/28/20 11/29/20 11/30/20 23:59 23:59 23:59 Intake Total 1000 / 1000 305 / 305 Balance 1000 / 1000 305 / 305 Lab / Micro Data Result Diagrams: 11/30/20 02:45 11/30/20 02:35 Labs: Laboratory Results - last 24 hr 11/29/20 11/29/20 11/29/20 21:20 21:20 21:20 WBC 6.4 RBC 4.18 L Hgb 12.7 Hct 37.9 MCV 90.7 MCH 30.4 MCHC 33.5 RDW Std Deviation 42.1 RDW Coeff of Axel 12.6 Plt Count 225 MPV 10.6 Immature Gran % (Auto) 0.500 Neut % (Auto) 59.2 Lymph % (Auto) 36.3 [place] % (Auto) 3.5 Eos % (Auto) 0.3 Baso % (Auto) 0.2 Absolute Neuts (auto) 3.8 Absolute Lymphs (auto) 2.31 Nucleated RBC % 0 Differential Comment D-Dimer Quant (PE/DVT) Sodium 134 L Potassium 3.9 Chloride 101 Carbon Dioxide 25.0 Anion Gap 8 BUN 13 Creatinine 0.72 Estim Creat Clear Calc 79.16 Est GFR (MDRD) Af Amer 115 Est GFR (MDRD) Non-Af 95 BUN/Creatinine Ratio 18.0 Glucose 243 H Calcium 8.7 Total Bilirubin AST ALT Alkaline Phosphatase Troponin I < 0.015 B-Natriuretic Peptide < 2.0 Total Protein Albumin Globulin Albumin/Globulin Ratio Procalcitonin COVID-19 ([facility]) POC Glucose 11/29/20 11/29/20 11/30/20 21:20 23:12 02:35 WBC RBC Hgb Hct MCV MCH MCHC RDW Std Deviation RDW Coeff of Axel Plt Count MPV Immature Gran % (Auto) Neut % (Auto) Lymph % (Auto) [place] % (Auto) Eos % (Auto) Baso % (Auto) Absolute Neuts (auto) Absolute Lymphs (auto) Nucleated RBC % Differential Comment D-Dimer Quant (PE/DVT) 0.52 H* Sodium Potassium Chloride Carbon Dioxide Anion Gap BUN Creatinine Estim Creat Clear Calc Est GFR (MDRD) Af Amer Est GFR (MDRD) Non-Af BUN/Creatinine Ratio Glucose Calcium Total Bilirubin AST ALT Alkaline Phosphatase Troponin I B-Natriuretic Peptide Total Protein Albumin Globulin Albumin/Globulin Ratio Procalcitonin 0.09 COVID-19 ([facility]) Detected POC Glucose 11/30/20 11/30/20 11/30/20 02:35 02:45 08:46 WBC 6.8 RBC 3.95 L Hgb 12.1 Hct 34.9 L MCV 88.4 MCH 30.6 MCHC 34.7 RDW Std Deviation 40.5 RDW Coeff of Axel 12.4 Plt Count 214 MPV 10.4 Immature Gran % (Auto) 0.400 Neut % (Auto) 76.0 H Lymph % (Auto) 22.2 [place] % (Auto) 1.2 Eos % (Auto) 0.1 Baso % (Auto) 0.1 Absolute Neuts (auto) 5.1 Absolute Lymphs (auto) 1.50 Nucleated RBC % 0 Differential Comment SCANNED D-Dimer Quant (PE/DVT) Sodium 137 Potassium 3.7 Chloride 103 Carbon Dioxide 26.0 Anion Gap 8 BUN 9 Creatinine 0.64 Estim Creat Clear Calc 89.05 Est GFR (MDRD) Af Amer TNP Est GFR (MDRD) Non-Af TNP BUN/Creatinine Ratio 14.1 Glucose 302 H Calcium 8.3 L Total Bilirubin 0.30 AST 51 H ALT 69 H Alkaline Phosphatase 171 H Troponin I B-Natriuretic Peptide Total Protein 7.9 Albumin 3.1 L Globulin 4.8 H Albumin/Globulin Ratio 0.6 L Procalcitonin COVID-19 ([facility]) POC Glucose 299 H Micro: Microbiology 11/29/20 02:35 Urine, Clean Catch Legionella Antigen - Final 11/29/20 02:35 Urine, Clean Catch Streptococcus pneumoniae Antigen (M - Final 11/29/20 21:15 Nasal Secretion SARS-CoV-2 Antigen (Rapid) - Final Radiography Diagnostic Testing: Radiology Impression Chest X-Ray 11/29/20 21:25 IMPRESSION: Subtle patchy bilateral opacities could represent infection in the correct clinical setting. Electronically Signed: Jonnathan Zamora MD at 22:05 EDT Tel , Service support , Chest CTA 11/30/20 00:12 IMPRESSION: No evidence of pulmonary embolism. Findings compatible with multifocal Covid 19 pneumonia in the appropriate clinical setting. Electronically Signed: Leonid Hurst MD at 2:21 EDT Tel , Service support , Rhythm Strip Rhythm Strip: Sinus Tach Rate: 102 Ectopy: None Physical Exam Const alert and no apparent distress HEENT Head and Scalp: normocephalic Resp normal respiratory effort Resp Narrative: bilateral fine crackles. Cardio regular rate and regular rhythm Skin no rashes or lesions noted Neuro Sensorium / Orientation: awake and alert Assessment & Plan Assessment/Plan (1) COVID-19: Status: Acute Code(s): U07.1 - COVID-19 Plan: on dexa. start rem-d. check test first quarantine for 20 days, sx began 3 days ago and will need to quarantine through 12/18. I was able to speak to her in Upper Sorbian but also used Google Translate to tell her these details. VTE proph w LMWH (2) Hypoxia: Status: Acute Code(s): R09.02 - Hypoxemia Plan: 09/07 COVID 19. wean o2 as tolerated
--- NOTE | 2020-11-30 12:04 | CASEMGMT ---
MARIA TERESA LAZCANO assessment: Phone call to with pt's sig other, Manual Gaytan, for initial transition planning/care coordination assessment per pt request. MARIA TERESA LAZCANO introduced self and role at [facility], pt's sig other voices understanding and consents to assessment. Pt is A/Ox4 and on 2L nc in no distress. Care providers, pharmacy, and demographics verified/updated. Presentation: Cough, SOB, body feels hot for several days Admitting dx: COVID pna PCP: Jean Specialists: Pt states no current Preferred [facility]acy: [facility] Insurance: Self Pay, pt/sig other state she has LETA but registration and Job/Family services cannot verify any insurance for pt at this time. Prescription Benefit: Self pay Living Will/HPOA: Pt does not have LW/HPOA and declines AD info. LNOK: Manual Gaytan, sig other Living Arrangements: Pt lives with sig other and 3 children in apt and states no concerns at home. Pt is independent with ADL's. Transportation: Pt drives self and states no transportation concerns. DME/HHC: Pt states no current DME or need for any. CM to follow for home oxygen need. No hx of HHC or SNF. Pt states no concerns with going home at time of discharge. 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 Pt does not smoke cigarettes or drink ETOH. CM to follow for home oxygen need and any further discharge planning/needs. Advised pt/sig other to ask for CM if any further questions/concerns/needs arise, voices understanding. Pt Goal: Home Plan: Home [place] MARIA TERESA LAZCANO
[2020-11-30 12:05] LABS: Internal QC Validated? YES +Cl - CLEAR BKGD; Pregnancy, Serum, hCG Quali. NEGATIVE Negative
[2020-11-30 12:40] LABS: Bedside Glucose 263 mg/dL (70-110)
--- NOTE | 2020-11-30 12:41 | CASEMGMT ---
Call to pt's room as she is in COVID precautions. Pt predominantly speaks Mexican but is agreeable to this RN CM calling sig other, Manual Gaytan, to complete CM assessment. She provided his updated cell number to this RN CM and this was updated in the chart. She states Manual speaks Divehi. [place] RN CM
--- NOTE | 2020-11-30 12:46 | CASEMGMT ---
SW called [facility], their system is down, so Tiarra at [facility] was not able to look up any details in regard to pt's Medicaid application. She was able to look pt up in another system(the one [facility] use) and it shows pt has not had coverage since 2019. Tiarra states that this may not be accurate however, she states to call back in a couple of hours to see if their system is up and running yet. BRITTANY Pettit
--- NOTE | 2020-11-30 12:50 | CASEMGMT ---
MARIA TERESA LAZCANO assessment: Phone call to with pt's sig other, Manual Gaytan, for initial transition planning/care coordination assessment per pt request. MARIA TERESA LAZCANO introduced self and role at [facility], pt's sig other voices understanding and consents to assessment. Pt is A/Ox4 and on 2L nc in no distress. Care providers, pharmacy, and demographics verified/updated. Presentation: Cough, SOB, body feels hot for several days Admitting dx: COVID pna PCP: Jean Specialists: Pt states no current Preferred Pharmacy: [facility] Insurance: Self Pay, pt/sig other state she has LETA but registration and Job/Family services cannot verify any insurance for pt at this time. Prescription Benefit: Self pay Living Will/HPOA: Pt does not have LW/HPOA and declines AD info. LNOK: Manual Gaytan, sig other Living Arrangements: Pt lives with sig other and 3 children in apt and states no concerns at home. Pt is independent with ADL's. Transportation: Pt drives self and states no transportation concerns. DME/HHC: Pt states no current DME or need for any. CM to follow for home oxygen need. No hx of HHC or SNF. Pt states no concerns with going home at time of discharge. 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 Pt does not smoke cigarettes or drink ETOH. CM to follow for home oxygen need and any further discharge planning/needs. Advised pt/sig other to ask for CM if any further questions/concerns/needs arise, voices understanding. Pt Goal: Home Plan: Home [place] MARIA TERESA LAZCANO
[2020-11-30 13:11] LABS: Alkaline Phosphatase 184 U/L (45-117)
[2020-11-30 16:46] LABS: Bedside Glucose 308 mg/dL (70-110)
[2020-11-30] MEDS: Acetaminophen 325 MG Tablet 650 MG PO (20:39)
[2020-11-30 21:15] LABS: Bedside Glucose 319 mg/dL (70-110)
[2020-12-01] VITALS (8 sets, daily range): BP systolic 102–134; BP diastolic 56–81; PULSE 81–95; RESP 14–18; TEMP 36.1–37.1; O2SAT 91–94
[2020-12-01 04:08] LABS: Hematocrit 36.6 % (37-47); Hemoglobin 12.5 g/dL (12.0-15.0); Mean Corp Hgb Conc 34.2 g/dL (32-36); Mean Corpuscular Hgb 30.3 pg (27.0-32.0); Mean Corpuscular Volume 88.8 fL (81-99); Mean Platelet Vol. 10.4 fl (6.2-12.0); Platelet Count 274 K/mm3 (150-450); RBC Distribution Width CV 12.3 % (11.6-14.6); RBC Distribution Width SD 40.1 fl (35.1-43.9); Red Blood Count 4.12 M/mm3 (4.2-5.4); White Blood Count 4.1 K/mm3 (4.4-11.0)
[2020-12-01 04:19] LABS: ALB/GLOB Ratio 0.6 RATIO (0.9-2.4); AST(SGOT) 40 U/L (15-37); Alanine Aminotransfer ALT/SGPT 65 U/L (13-56); Albumin, Serum 3.1 g/dL (3.2-5.0); Alkaline Phosphatase 173 U/L (45-117); Anion Gap 7 (5-15); BUN 14 mg/dL (7-18); Calcium,Total 8.6 mg/dL (8.5-10.1); Chloride 103 mmol/L (98-107); Creatinine, Serum 0.74 mg/dL (0.55-1.02); EST Glomerular Filtration Rate 93 mL/min (>60); Est Glom Filt Rate - Afr Amer 113 mL/min (>60); Estimated Creatinine Clearance 77.02 ml/min; Glucose 292 mg/dL (74-106); Potassium 3.8 mmol/L (3.5-5.1); Protein, Total 8.1 g/dL (6.4-8.2); Sodium Level 139 mmol/L (136-145)
[2020-12-01] MEDS: Levothyroxine 150 MCG Tablet PO (05:16)
[2020-12-01] MEDS: Insulin Lispro 100 UNIT/ML INSULN.PEN SC ×4 (08:37→21:04)
[2020-12-01] MEDS: Acetaminophen 325 MG Tablet 650 MG PO ×2 (08:39→21:07)
[2020-12-01 08:56] LABS: Bedside Glucose 271 mg/dL (70-110)
[2020-12-01] MEDS: Enoxaparin 30 MG/0.3 ML Syringe SC ×2 (10:50→21:04)
[2020-12-01] MEDS: guaiFENesin 1,200 MG Tablet 1200 MG PO ×2 (10:50→21:05)
--- NOTE | 2020-12-01 10:50 | PN.HOSP_ITS ---
Subjective Subjective: No new complaints. Objective Data Objective Data Vital Signs: Vital Signs Temp Pulse Resp BP Pulse Ox 36.1 C L 81 16 118/76 94 12/01/20 05:00 12/01/20 05:00 12/01/20 05:00 12/01/20 05:00 12/01/20 05:00 Oxygen Flow Rate (L/min) 2 Oxygen Delivery Method Nasal Cannula Weight: 86.863 kg Body Mass Index (BMI) 35.9 Intake & Output: Intake and Output for Last 24 Hours 11/29/20 11/30/20 12/01/20 23:59 23:59 23:59 Intake Total 1000 / 1000 1155 / 1155 120 / 120 Balance 1000 / 1000 1155 / 1155 120 / 120 Lab / Micro Data Result Diagrams: 12/01/20 03:50 12/01/20 03:50 Labs: Laboratory Results - last 24 hr 11/30/20 11/30/20 11/30/20 02:35 12:21 12:35 WBC RBC Hgb Hct MCV MCH MCHC RDW Std Deviation RDW Coeff of Axel Plt Count MPV Sodium Potassium Chloride Carbon Dioxide Anion Gap BUN Creatinine Estim Creat Clear Calc Est GFR (MDRD) Af Amer Est GFR (MDRD) Non-Af BUN/Creatinine Ratio Glucose Calcium Total Bilirubin AST ALT Alkaline Phosphatase 184 H Total Protein Albumin Globulin Albumin/Globulin Ratio Serum , Qual NEGATIVE POC Glucose 263 H 11/30/20 11/30/20 12/01/20 16:24 20:36 03:50 WBC 4.1 L RBC 4.12 L Hgb 12.5 Hct 36.6 L MCV 88.8 MCH 30.3 MCHC 34.2 RDW Std Deviation 40.1 RDW Coeff of Axel 12.3 Plt Count 274 MPV 10.4 Sodium Potassium Chloride Carbon Dioxide Anion Gap BUN Creatinine Estim Creat Clear Calc Est GFR (MDRD) Af Amer Est GFR (MDRD) Non-Af BUN/Creatinine Ratio Glucose Calcium Total Bilirubin AST ALT Alkaline Phosphatase Total Protein Albumin Globulin Albumin/Globulin Ratio Serum , Qual POC Glucose 308 H 319 H 12/01/20 12/01/20 03:50 08:27 WBC RBC Hgb Hct MCV MCH MCHC RDW Std Deviation RDW Coeff of Axel Plt Count MPV Sodium 139 Potassium 3.8 Chloride 103 Carbon Dioxide 29.0 Anion Gap 7 BUN 14 Creatinine 0.74 Estim Creat Clear Calc 77.02 Est GFR (MDRD) Af Amer 113 Est GFR (MDRD) Non-Af 93 BUN/Creatinine Ratio 19.0 Glucose 292 H Calcium 8.6 Total Bilirubin 0.40 AST 40 H ALT 65 H Alkaline Phosphatase 173 H Total Protein 8.1 Albumin 3.1 L Globulin 5.0 H Albumin/Globulin Ratio 0.6 L Serum , Qual POC Glucose 271 H Micro: Microbiology 11/29/20 02:35 Urine, Clean Catch Legionella Antigen - Final 11/29/20 02:35 Urine, Clean Catch Streptococcus pneumoniae Antigen (M - Final 11/29/20 21:15 Nasal Secretion SARS-CoV-2 Antigen (Rapid) - Final Rhythm Strip Rhythm Strip: Sinus Tach Rate: 102 Ectopy: None Physical Exam Narrative Stood the patient up without oxygen her pulse ox dropped down to 89% without ambulation. But back in bed where she was put back on oxygen and her oxygenati on dropped down to 84% and then statically climbed up to 90% on 2 L. Const alert and no apparent distress Resp normal respiratory effort Resp Narrative: Bibasilar crackles Cardio regular rate, regular rhythm, S1 normal heart sound and S2 normal heart sound GI normal to inspection, nondistended, normoactive bowel sounds, non-tender and non -distended Assessment & Plan Assessment/Plan (1) COVID-19: Status: Acute Code(s): U07.1 - COVID-19 (2) Hypoxia: Status: Acute Code(s): R09.02 - Hypoxemia Plan: Continue with the dexamethasone as well as remdesivir. Date of onset of symptoms was approximately 3 days prior to admission. Patient will need to quarantine for total of 20 days through 17 December. Patient still with hypoxia but is stable on 2 L. Given concern the patient has no insurance patient cannot be discharged unless she would be able to afford the oxygen which is of concern. Discussed with case management and they will evaluate to see if the patient does have Medicaid. If oxygen could be obtained patient feel would be medically stable to convalesce at home and continue with dexamethasone. I have already informed her that when she does go home that she would need to wear asks around her family and they would need to wear masks around her and that she would need to self quarantine for the 20 days. VTE prophylaxis: Moderate risk. Patient is on enoxaparin. IMPROVE VTE score 0.5% and therefore would not require anticoagulation upon discharge.
[2020-12-01] MEDS: dexAMETHasone 2 MG TABLET 6 MG PO (10:51)
--- NOTE | 2020-12-01 12:40 | CASEMGMT ---
EMILY Note: EMILY called [facility] ([phone]). EMILY spoke to Mandy in customer service at [facility]. She reports that patient does not show active medicaid since 2019. She reports that this is per the information on her [facility] screen.
--- NOTE | 2020-12-01 12:56 | CASEMGMT ---
Social Work Note: EMILY called patient's significant other, Tank [phone]. He indicated he had thought that Rosy had insurance. SW updated him that per [facility] records Rosy has not had insurance since 2019. He was advised that staff will provide Rosy with application for [employer] benefits. He indicated he would assist Rosy in completing the application and ensuring that she had medical converage.
[2020-12-01] MEDS: Furosemide 40 MG Tablet PO (16:22)
[2020-12-01 16:31] LABS: Bedside Glucose 388 mg/dL (70-110)
[2020-12-01] MEDS: 0.9% Saline Lock 10 ML Syringe IV (21:06)
[2020-12-01 21:26] LABS: Bedside Glucose 353 mg/dL (70-110)
[2020-12-02 03:24] VITALS: BP 114/77; PULSE 79; RESP 16; TEMP 36.7; O2SAT 92
[2020-12-02 03:45] LABS: Absolute Lymphocyte Count 1.62 X10^3/uL (0.83-4.51); Absolute Neutrophil Count 4.9 X10^3/uL (2.0-7.7); Basophil# 0.02 X10^3/uL; Basophil% 0.3 % (0-1); Hematocrit 38.6 % (37-47); Hemoglobin 13.2 g/dL (12.0-15.0); Lymphocyte # 1.62 X10^3/ul (0.83-4.51); Lymphocyte % 23.5 % (19-41); Mean Corp Hgb Conc 34.2 g/dL (32-36); Mean Corpuscular Hgb 30.3 pg (27.0-32.0); Mean Corpuscular Volume 88.5 fL (81-99); Monocyte% 4.3 % (0-10); NRBC Flagged by Analyzer 0 % (0-5); Neutrophil # 4.88 X10^3/uL (2.7-7.7); Neutrophil % 70.7 % (47-70); POSITIVE MORPHOLOGY YES; Platelet Count 376 K/mm3 (150-450); RBC Distribution Width CV 12.1 % (11.6-14.6); Red Blood Count 4.36 M/mm3 (4.2-5.4); White Blood Count 6.9 K/mm3 (4.4-11.0)
[2020-12-02 03:48] LABS: Differential Indicated SCAN CRITERIA MET
[2020-12-02 04:02] LABS: ALB/GLOB Ratio 0.7 RATIO (0.9-2.4); AST(SGOT) 42 U/L (15-37); Alanine Aminotransfer ALT/SGPT 65 U/L (13-56); Albumin, Serum 3.4 g/dL (3.2-5.0); Alkaline Phosphatase 178 U/L (45-117); Anion Gap 8 (5-15); BUN 23 mg/dL (7-18); BUN/Creat Ratio 29.4 RATIO (10-20); Chloride 100 mmol/L (98-107); Creatinine, Serum 0.78 mg/dL (0.55-1.02); EST Glomerular Filtration Rate 87 mL/min (>60); Est Glom Filt Rate - Afr Amer 105 mL/min (>60); Estimated Creatinine Clearance 73.07 ml/min; Globulin 5.2 g/dL (2.2-4.2); Glucose 268 mg/dL (74-106); Potassium 3.6 mmol/L (3.5-5.1); Protein, Total 8.6 g/dL (6.4-8.2); Sodium Level 137 mmol/L (136-145)
[2020-12-02 04:13] LABS: Atypical Lymphocyte RARE %; Differential Comment SCANNED
[2020-12-02] MEDS: Levothyroxine 150 MCG Tablet PO (05:28)
[2020-12-02 08:40] VITALS: BP 113/71; PULSE 79; RESP 18; TEMP 36; O2SAT 94
[2020-12-02] MEDS: Insulin Lispro 100 UNIT/ML INSULN.PEN SC ×4 (08:44→22:38)
[2020-12-02] MEDS: Acetaminophen 325 MG Tablet 650 MG PO ×2 (08:48→20:46)
[2020-12-02 09:43] VITALS: O2SAT 94
[2020-12-02] MEDS: dexAMETHasone 2 MG TABLET 6 MG PO (10:13)
[2020-12-02] MEDS: guaiFENesin 1,200 MG Tablet 1200 MG PO ×2 (10:14→22:39)
[2020-12-02] MEDS: Furosemide 40 MG Tablet PO ×2 (10:14→16:31)
[2020-12-02] MEDS: Enoxaparin 30 MG/0.3 ML Syringe SC ×2 (10:15→22:39)
[2020-12-02] MEDS: guaiFENesin 10 ML UDC (200MG/10ML) PO (10:16)
[2020-12-02 12:31] LABS: Bedside Glucose 279 mg/dL (70-110)
[2020-12-02 12:41] VITALS: BP 109/73; PULSE 80; RESP 18; TEMP 36.1; O2SAT 94
--- NOTE | 2020-12-02 13:30 | PN.HOSP_ITS ---
Subjective Subjective: Breathing well. Some cough and phlegm production. Objective Data Objective Data Vital Signs: Vital Signs Temp Pulse Resp BP Pulse Ox 36.1 C L 80 18 109/73 94 12/02/20 12:41 12/02/20 12:41 12/02/20 12:41 12/02/20 12:41 12/02/20 12:41 Oxygen Flow Rate (L/min) 2 Oxygen Delivery Method Nasal Cannula Weight: 86.778 kg Body Mass Index (BMI) 35.9 Intake & Output: Intake and Output for Last 24 Hours 11/30/20 12/01/20 12/02/20 23:59 23:59 23:59 Intake Total 1155 / 1155 370 / 370 250 / 250 Balance 1155 / 1155 370 / 370 250 / 250 Lab / Micro Data Result Diagrams: 12/02/20 03:35 12/02/20 03:35 Labs: Laboratory Results - last 24 hr 12/01/20 12/01/20 12/02/20 16:21 20:56 03:35 WBC 6.9 RBC 4.36 Hgb 13.2 Hct 38.6 MCV 88.5 MCH 30.3 MCHC 34.2 RDW Std Deviation 39.0 RDW Coeff of Axel 12.1 Plt Count 376 MPV 10.0 Immature Gran % (Auto) 1.200 H Neut % (Auto) 70.7 H Lymph % (Auto) 23.5 Phillips % (Auto) 4.3 Eos % (Auto) 0.0 Baso % (Auto) 0.3 Absolute Neuts (auto) 4.9 Absolute Lymphs (auto) 1.62 Nucleated RBC % 0 Differential Comment SCANNED Atypical Lymphocytes RARE Sodium Potassium Chloride Carbon Dioxide Anion Gap BUN Creatinine Estim Creat Clear Calc Est GFR (MDRD) Af Amer Est GFR (MDRD) Non-Af BUN/Creatinine Ratio Glucose Calcium Total Bilirubin AST ALT Alkaline Phosphatase Total Protein Albumin Globulin Albumin/Globulin Ratio POC Glucose 388 H 353 H 12/02/20 12/02/20 03:35 08:34 WBC RBC Hgb Hct MCV MCH MCHC RDW Std Deviation RDW Coeff of Axel Plt Count MPV Immature Gran % (Auto) Neut % (Auto) Lymph % (Auto) Phillips % (Auto) Eos % (Auto) Baso % (Auto) Absolute Neuts (auto) Absolute Lymphs (auto) Nucleated RBC % Differential Comment Atypical Lymphocytes Sodium 137 Potassium 3.6 Chloride 100 Carbon Dioxide 29.0 Anion Gap 8 BUN 23 H Creatinine 0.78 Estim Creat Clear Calc 73.07 Est GFR (MDRD) Af Amer 105 Est GFR (MDRD) Non-Af 87 BUN/Creatinine Ratio 29.4 H Glucose 268 H Calcium 9.0 Total Bilirubin 0.40 AST 42 H ALT 65 H Alkaline Phosphatase 178 H Total Protein 8.6 H Albumin 3.4 Globulin 5.2 H Albumin/Globulin Ratio 0.7 L POC Glucose 279 H Micro: Microbiology 11/29/20 02:35 Urine, Clean Catch Legionella Antigen - Final 11/29/20 02:35 Urine, Clean Catch Streptococcus pneumoniae Antigen (M - Final 11/29/20 21:15 Nasal Secretion SARS-CoV-2 Antigen (Rapid) - Final Rhythm Strip Rhythm Strip: Sinus Tach Rate: 102 Ectopy: None Physical Exam Narrative Checkup patient's oxygen she was 94 to 95% on 2 L. At rest she was around 991 but ambulating her on room air from her the window in her room to the curtain and set her back down, her pulse ox dropped down to 87% and then down to 85%. Const alert and no apparent distress Resp normal respiratory effort Resp Narrative: crackles in bases, but less prominent from 12/01 Cardio regular rate, regular rhythm, S1 normal heart sound and S2 normal heart sound Extremity normal to inspection Assessment & Plan Assessment/Plan (1) COVID-19: Status: Acute Code(s): U07.1 - COVID-19 Plan: on dexa. rem-d quarantine for 20 days, sx began 3 days ago and will need to quarantine through 12/18. I was able to speak to her in Greenlandic but also used [employer] to tell her these details. VTE proph w LMWH Did discuss with the patient's significant other, Tank, explained that overall she is getting better but she is not ready for discharge. Complicating her disposition is that she had does not have insurance so that we cannot discharge her while she is still requiring oxygen. Once her pulse ox can remain in the 90% range and above with minimal exertion then she could likely be safely discharged at that point time. Hopefully another day or 2 in the hospital. (2) Hypoxia: Status: Acute Code(s): R09.02 - Hypoxemia Plan: 2/2 COVID 19. wean o2 as tolerated Inpatient E&M: 96406 Subs Hosp L2
[2020-12-02 14:05] LABS: Bedside Glucose 310 mg/dL (70-110)
[2020-12-02 16:30] VITALS: BP 112/70; PULSE 79; RESP 16; TEMP 36.3; O2SAT 94
[2020-12-02 16:30] LABS: Bedside Glucose 426 mg/dL (70-110)
[2020-12-02 20:30] VITALS: BP 114/74; PULSE 91; RESP 20; TEMP 36.6; O2SAT 94
[2020-12-02 22:50] LABS: Bedside Glucose 415 mg/dL (70-110)
[2020-12-03 02:30] VITALS: BP 105/65; PULSE 86; RESP 16; TEMP 36.4; O2SAT 94
[2020-12-03] MEDS: Levothyroxine 150 MCG Tablet PO (05:34)
[2020-12-03 07:07] LABS: ALB/GLOB Ratio 0.7 RATIO (0.9-2.4); AST(SGOT) 35 U/L (15-37); Alanine Aminotransfer ALT/SGPT 66 U/L (13-56); Albumin, Serum 3.5 g/dL (3.2-5.0); Alkaline Phosphatase 167 U/L (45-117); Anion Gap 7 (5-15); BUN 30 mg/dL (7-18); BUN/Creat Ratio 32.6 RATIO (10-20); Calcium,Total 8.9 mg/dL (8.5-10.1); Chloride 98 mmol/L (98-107); Creatinine, Serum 0.92 mg/dL (0.55-1.02); EST Glomerular Filtration Rate 72 mL/min (>60); Est Glom Filt Rate - Afr Amer 87 mL/min (>60); Estimated Creatinine Clearance 61.95 ml/min; Globulin 5.2 g/dL (2.2-4.2); Glucose 279 mg/dL (74-106); Potassium 3.3 mmol/L (3.5-5.1); Protein, Total 8.7 g/dL (6.4-8.2); Sodium Level 136 mmol/L (136-145)
[2020-12-03] MEDS: Insulin Lispro 100 UNIT/ML INSULN.PEN SC ×2 (08:38→12:18)
[2020-12-03] MEDS: dexAMETHasone 2 MG TABLET 6 MG PO (10:34)
[2020-12-03] MEDS: guaiFENesin 1,200 MG Tablet 1200 MG PO (10:34)
[2020-12-03] MEDS: Enoxaparin 30 MG/0.3 ML Syringe SC (10:35)
[2020-12-03] MEDS: Furosemide 40 MG Tablet PO (10:35)
[2020-12-03 10:39] VITALS: BP 111/73; PULSE 88; RESP 18; TEMP 36.3; O2SAT 94
--- NOTE | 2020-12-03 12:19 | DCINST_ITS ---
Discharge Instructions Outpatient Procedure Reason For Visit: PNEUMONIA Follow Up Care Test Results: Test results from this visit will be discussed in further detail at your follow-up appointment, if applicable. Discharge Plan Admission Admit Date/Time: 11/29/20 23:35 Attending Provider: Lamin Oconnell Primary Care Provider: Jake Pena Instructions Patient Instructions: Coronavirus Disease 2019 (COVID-19): Overview, Coronavirus Disease 2019 (COVID-19): Caring for Yourself or Others Additional Instructions / Restrictions: Self isolate for at least 20 days since symptoms began or the first positive COVID-19 test AND at least one day (24 hours) have passed since resolution of fever without the use of fever-reducing agents AND improvement of symptoms (e.g., cough, shortness of breath) Quarantine through December 18. When around people in the same room, wear a face mask. Individuals also in the room should wear a mask. If possible, use a different bathroom and bedroom. Pe rform adequate hand hygiene. Avoid sharing dishes, glasses, etc. Discharge Orders/Prescriptions Prescriptions: New dexamethasone 2 mg Tablet 6 mg PO DAILY Qty: 5 RF: 0 Mucus Relief ER 1,200 mg Tablet Extended Release 12hr 1,200 mg PO BID Qty: 10 RF: 0 Continued levothyroxine 150 MCG tablet 150 mcg PO DAILY Qty: 30 RF: 1 metformin 1,000 MG tablet 1,000 mg PO BIDCM Qty: 60 RF: 1 Referrals: Jake Pena MD [Primary Care Provider] - In 1 Week Disposition Patient Disposition: Home, self care
[2020-12-03 12:20] LABS: Bedside Glucose 271 mg/dL (70-110)
--- NOTE | 2020-12-03 12:30 | DS.PCM_ITS ---
Providers Date of Admission: 11/29/20 Primary Care Physician: Dr. Jake Pena MD Reason For Visit: PNEUMONIA Diagnosis Discharge Diagnosis (1) COVID-19: Status: Acute Code(s): U07.1 - COVID-19 (2) Hypoxia: Status: Acute Code(s): R09.02 - Hypoxemia Medications at Discharge Home Medications levothyroxine 150 mcg PO DAILY #30 tablet 01/03/19 metformin 1,000 mg PO BIDCM #60 tab 01/03/19 dexamethasone 6 mg PO DAILY #5 tab 12/03/20 guaifenesin [Mucus Relief ER] 1,200 mg PO BID #10 tab 12/03/20 Hospital Course Summary of Care Provided Minutes Spent on Discharge: 32 Hospital Course: Presents with shortness of breath. Patient was diagnosed with COVID-19. Patient was started on steroids and remdesivir. Patient slowly improved and today was on room air and ambulated. Patient did have a furosemide challenge during this time which would not be continued upon discharge. Patient did have a CT angiogram of her chest so her Metformin was held. Patient's blood sugars with the holding Metformin as well as dexamethasone were elevated. Patient was on insulin glargine while she was here. Patient did not have insurance so patient could not be discharged with oxygen sooner the patient has done well. Was able to communicate with the patient in Ecuadorean and did convert the patient for discharge instructions that they would be put in Pakistani and she stated that her second and other would be able to read them. I did discuss with her significant other on the and explained her situation at that time. Patient is stable will be discharged home in stable condition. Patient advised to quarantine at home through the completed a 20-day quarantine and to wear a mask around her family while she is at home and under quarantine. Physical Exam Narrative Ambulate the patient in her room and patient had no respiratory distress nor any conversational dyspnea. This was performed on room air. Patient's oxygen was 94%. Const alert and no apparent distress Constitutional Narrative: no respiratory distress. HEENT normocephalic Neuro Neuro Narrative: normal gait ABG / Lab / Microbiology Data Result Diagrams: 12/02/20 03:35 12/03/20 06:30 Laboratory: Laboratory Results - last 24 hr 04/29/21 04/29/21 04/29/21 08:34 12:34 16:23 Sodium Potassium Chloride Carbon Dioxide Anion Gap BUN Creatinine Estim Creat Clear Calc Est GFR (MDRD) Af Amer Est GFR (MDRD) Non-Af BUN/Creatinine Ratio Glucose Calcium Total Bilirubin AST ALT Alkaline Phosphatase Total Protein Albumin Globulin Albumin/Globulin Ratio POC Glucose 279 H 310 H 426 H 12/02/20 12/03/20 12/03/20 22:36 06:30 08:33 Sodium 136 Potassium 3.3 L Chloride 98 Carbon Dioxide 31.0 Anion Gap 7 BUN 30 H Creatinine 0.92 Estim Creat Clear Calc 61.95 Est GFR (MDRD) Af Amer 87 Est GFR (MDRD) Non-Af 72 BUN/Creatinine Ratio 32.6 H Glucose 279 H Calcium 8.9 Total Bilirubin 0.40 AST 35 ALT 66 H Alkaline Phosphatase 167 H Total Protein 8.7 H Albumin 3.5 Globulin 5.2 H Albumin/Globulin Ratio 0.7 L POC Glucose 415 H 271 H Microbiology: Microbiology 11/29/20 02:35 Urine, Clean Catch Legionella Antigen - Final 11/29/20 02:35 Urine, Clean Catch Streptococcus pneumoniae Antigen (M - Final 11/29/20 21:15 Nasal Secretion SARS-CoV-2 Antigen (Rapid) - Final D/C Instructions Discharge Diet: 1800 Calorie Control Diet Meaningful Use Info Meaningful Use Diagnoses (Choose all that apply): None applicable Discharge Plan Admission Admit Date/Time: 11/29/20 23:35 Attending Provider: Lamin Oconnell Primary Care Provider: Jake Pena Instructions Patient Instructions: Coronavirus Disease 2019 (COVID-19): Overview, Coronavirus Disease 2019 (COVID-19): Caring for Yourself or Others Additional Instructions / Restrictions: Self isolate for at least 20 days since symptoms began or the first positive COVID-19 test AND at least one day (24 hours) have passed since resolution of fever without the use of fever-reducing agents AND improvement of symptoms (e.g., cough, shortness of breath) Quarantine through December 18. When around people in the same room, wear a face mask. Individuals also in the room should wear a mask. If possible, use a different bathroom and bedroom. Perform adequate hand hygiene. Avoid sharing dishes, glasses, etc. Discharge Orders/Prescriptions Prescriptions: New dexamethasone 2 mg Tablet 6 mg PO DAILY Qty: 5 RF: 0 Mucus Relief ER 1,200 mg Tablet Extended Release 12hr 1,200 mg PO BID Qty: 10 RF: 0 Continued levothyroxine 150 MCG tablet 150 mcg PO DAILY Qty: 30 RF: 1 metformin 1,000 MG tablet 1,000 mg PO BIDCM Qty: 60 RF: 1 Referrals: Jake Pena MD [Primary Care Provider] - In 1 Week Disposition Patient Disposition: Home, self care Visit Charges Inpatient E&M: 84802 Disch Hosp
--- NOTE | 2020-12-03 13:05 | CASEMGMT ---
Pt to be sent home on mucinex and dexamethasone and meds e-scribed to [facility]. Call to Manual and he states no concerns paying for meds at this time. Dr. Oconnell had pt ambulate on room air in room and pt's sats remained stable and no home oxygen needed. Pt's sig other states no other concerns with pt coming home at this time. Irene aware to notify sig other when pt ready for discharge, voices understanding. SStkarma RN CM
[2020-12-03 15:25] LABS: Bedside Glucose 265 mg/dL (70-110)
== END 2020-12-03 14:00 | disposition home or self-care (01) | DRG 177 ==
LOC: ED 23:41 → ICU 23:51
PROVIDERS: Admitting Provider Hospitalist; Emergency Provider Emergency Medicine; PCP Family Medicine
DX: U07.1 COVID-19 (principal); J12.82 Pneumonia due to coronavirus disease 2019; E03.9 Hypothyroidism, unspecified; E11.65 Type 2 diabetes mellitus with hyperglycemia; R09.02 Hypoxemia; R43.2 Parageusia; Z79.890 Hormone replacement therapy
CPT/HCPCS: 71045; 71275; 80048; 80053; 82962; 83880; 84075; 84145; 84484; 84703; 85025; 85027; 85379; 87426; 87449; 87635; 93005; 96365; 96366; 96375; 99251; 99282; 99284; J7030; J7050; Q9967; A4216; G0463; U0002